=== PATIENT | male | born 1990 | race Caucasian/White ===

== ENCOUNTER 2017-07-31 02:53 | Inpatient (IN) | payer OTHER ==
[~2017-07-31] VITALS: Ht 188 cm; Wt 94.8 kg
[2017-07-31] VITALS (11 sets, daily range): BP systolic 106–160; BP diastolic 59–96; PULSE 64–127; RESP 14–23; TEMP 98.2–101.1; O2SAT 94–100
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
[2017-07-31 03:20] LABS: AUTOMATED NEUTROPHIL # 9.9 TH/MM3 (1.8-7.7); BASOPHIL # 0.1 TH/MM3 (0-0.2); BASOPHIL % 0.5 % (0.0-2.0); EOSINOPHIL # 0.6 TH/MM3 (0-0.4); EOSINOPHIL % 3.1 % (0.0-4.0); HEMATOCRIT 47.5 % (39.0-51.0); HEMOGLOBIN 15.8 GM/DL (13.0-17.0); LYMPH % 37.8 % (9.0-44.0); LYMPHOCYTE # 7.5 TH/MM3 (1.0-4.8); MEAN CELL VOLUME 94.5 FL (80.0-100.0); MEAN CORPUSCULAR HEMOGLOBIN 31.5 PG (27.0-34.0); MEAN CORPUSCULAR HGB CONC 33.3 % (32.0-36.0); MEAN PLATELET VOLUME 8.1 FL (7.0-11.0); MONO % 8.4 % (0.0-8.0); MONOCYTE # 1.7 TH/MM3 (0-0.9); NEUT % 50.2 % (16.0-70.0); PLATELET COUNT 270 TH/MM3 (150-450); RED BLOOD COUNT 5.03 MIL/MM3 (4.50-5.90); RED CELL DISTRIBUTION WIDTH 12.9 % (11.6-17.2); WHITE BLOOD COUNT 19.8 TH/MM3 (4.0-11.0)
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
[2017-07-31 03:34] LABS: INTERNATIONAL NORMALIZED RATIO 1.1 RATIO; PROTHROMBIN TIME - PATIENT 11.3 SEC (9.8-11.6)
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
[2017-07-31] MEDS ORDERED: IOHEXOL 350 MG/ML 10 ML VIAL (for RAD DIAG) IVCONTRAST ONE (03:38)
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
[2017-07-31] MEDS ORDERED: SODIUM CHLORIDE 0.9% FLUSH 10 ML FLUSH IV FLUSH PRN (03:45)
[2017-07-31] MEDS ORDERED: ONDANSETRON HCL 4 MG/2 ML VIAL IV PUSH PRN (03:45)
[2017-07-31] MEDS ORDERED: ENALAPRILAT 1.25 MG/ML VIAL IV PUSH PRN (03:45)
[2017-07-31] MEDS ORDERED: MAGNESIUM HYDROXIDE SUSP 30 ML CUP PO PRN (03:45)
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
[2017-07-31] MEDS ORDERED: LIDOCAINE HCL 1% 50 ML VIAL INFIL ONE (04:00)
[2017-07-31 04:01] LABS: LYMPHOCYTES 40 % (9-44); MONOCYTES 6 % (0-8); NEUTROPHIL # MANUAL DIFF 10.3 TH/MM3 (1.8-7.7); POLYS (SEG NEUTROPHILS) 52 % (16-70)
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
[2017-07-31] MEDS: SODIUM CHLOR 0.9% 1000 ML INJ 1,000 ML IV SCH ×2 (04:25→13:35)
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
[2017-07-31] MEDS: ceFAZolin 2 GM PREMIX 50 ML IV SCH ×4 (05:48→21:42)
[2017-07-31] MEDS: PANTOPRAZOLE SODIUM 40 MG VIAL IVP SCH (05:48)
[2017-07-31] MEDS: MORPHINE SULFATE 2 MG/ML INJ IV PUSH PRN ×3 (05:50→13:00)
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
[2017-07-31] MEDS: ACETAMINOPHEN/HYDROcodone 325 MG/5 MG TAB PO PRN ×4 (08:26→13:41)
[2017-07-31] MEDS ORDERED: DOCUSATE SODIUM 100 MG CAP PO SCH (09:00)
[2017-07-31] MEDS: MULTIVITAMIN INJ 10 ML, THIAMINE INJ 100 MG, FOLIC ACID INJ 1 MG in SODIUM CHLORID 0.9%... IV SCH (09:00)
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
[2017-07-31] MEDS: BACITRACIN TOP OINT 15 GM TUBE TOP SCH ×2 (10:00→17:30)
[2017-07-31] MEDS ORDERED: LACTULOSE SYRUP 20 GM/30 ML CUP PO PRN (10:00)
[2017-07-31] MEDS: DOCUSATE SODIUM 50 MG/SENNA 8.6 MG TAB PO SCH ×2 (11:00→21:42)
[2017-07-31] MEDS ORDERED: MIDAZOLAM HCL 2 MG/2 ML VIAL IV ONE (12:00)
[2017-07-31] MEDS ORDERED: DEXAMETHASONE SOD PHOS 4 MG/ML VIAL IV ONE (12:00)
[2017-07-31] MEDS ORDERED: PROPOFOL 200 MG/20 ML AMP IV ONE (12:00)
[2017-07-31] MEDS ORDERED: NEOSTIGMINE 5 MG/5 ML SYRINGE IV PUSH ONE (12:00)
[2017-07-31] MEDS ORDERED: LIDOCAINE HCL 1% PF 5 ML SYRINGE OTHER ONE (12:00)
[2017-07-31] MEDS ORDERED: MORPHINE SULFATE 4 MG/ML INJ IV ONE (12:00)
[2017-07-31] MEDS ORDERED: ONDANSETRON HCL 4 MG/2 ML VIAL IV PUSH ONE (12:00)
[2017-07-31] MEDS ORDERED: ROCURONIUM INJ 50 MG/5 ML SYRINGE IV PUSH ONE (12:00)
[2017-07-31] MEDS ORDERED: GLYCOPYRROLATE 1 MG/5 ML SYRINGE IV PUSH ONE (12:00)
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
[2017-07-31] MEDS ORDERED: GENTAMICIN 80 MG PREMIX 100 ML IV SCH (14:00)
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
[2017-07-31] MEDS ORDERED: TETANUS/DIPHTHERIA TOXOID ADULT 0.5 ML VIAL IM ONE (16:00)
[2017-07-31] MEDS ORDERED: GENTAMICIN SULFATE 80 MG/2 ML VIAL ONE (16:08)
[2017-07-31] MEDS ORDERED: VANCOMYCIN HCL 1000 MG VIAL ONE (16:08)
[2017-07-31] MEDS ORDERED: ARTIFICIAL TEARS OPTH OINT 3.5 APPLIC/3.5 GM TUBO ONE (16:49)
[2017-07-31] MEDS: LACTATED RINGER'S 1000 ML INJ 1,000 ML IV SCH (17:07)
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
[2017-07-31] MEDS ORDERED: diphenhydrAMINE HCL 25 MG CAP PO PRN (17:15)
[2017-07-31] MEDS ORDERED: Post-op Orders (for Pharmacy) XX ONE (17:15)
--- NOTE | 2017-07-31 17:42 | RADRPT ---
EXAM DATE/TIME: 07/31/2017 16:54 [facility] COMPARISON: No previous studies available for comparison. INDICATIONS : External fixation of left lower leg. MEDICAL HISTORY : None. SURGICAL HISTORY : None. ENCOUNTER: Initial ACUITY: 1 day PAIN SCORE: Non-responsive. LOCATION: Left ankle. FINDINGS: Three view exam was performed of the left ankle. There are mildly displaced obliquely oriented fractu re of the distal tibia. Fibular intact. No dislocation. CONCLUSION: 1. External fixation across a mildly displaced distal tibial fracture. Bhavin Rossi MD on July 31, 2017 at 17:39 Board Certified Radiologist. This report was verified electronically.
[2017-07-31] MEDS ORDERED: *MEPERIDINE 25 MG INJ VIAL PERIprocedural Use ONLY ONE (18:17)
[2017-07-31] MEDS ORDERED: DO NOT ADM ANY ANTICOAGULANT DRUGS PRN (18:45)
[2017-07-31] MEDS: ACETAMINOPHEN/HYDROcodone 325 MG/10 MG TAB PO PRN (21:41)
[2017-07-31] MEDS: KETOROLAC TROMETHAMINE 30 MG/ML (IVP) VIAL IVP SCH (21:42)
[2017-08-01] VITALS (7 sets, daily range): BP systolic 148–166; BP diastolic 78–95; PULSE 68–84; RESP 16–19; TEMP 97.5–98.1; O2SAT 96–100
[2017-08-01] MEDS: ACETAMINOPHEN/HYDROcodone 325 MG/10 MG TAB PO PRN ×5 (05:10→23:42)
[2017-08-01] MEDS: PANTOPRAZOLE SODIUM 40 MG VIAL IVP SCH (05:12)
[2017-08-01] MEDS: KETOROLAC TROMETHAMINE 30 MG/ML (IVP) VIAL IVP SCH ×3 (05:12→22:06)
[2017-08-01] MEDS: ceFAZolin 2 GM PREMIX 50 ML IV SCH ×3 (05:13→22:06)
[2017-08-01] MEDS: LACTATED RINGER'S 1000 ML INJ 1,000 ML IV SCH (05:37)
[2017-08-01] MEDS: MULTIVITAMIN INJ 10 ML, THIAMINE INJ 100 MG, FOLIC ACID INJ 1 MG in SODIUM CHLORID 0.9%... IV SCH (05:48)
[2017-08-01 07:34] LABS: AUTOMATED NEUTROPHIL # 5.3 TH/MM3 (1.8-7.7); BASOPHIL % 0.1 % (0.0-2.0); HEMATOCRIT 40.9 % (39.0-51.0); HEMOGLOBIN 14.2 GM/DL (13.0-17.0); LYMPH % 14.5 % (9.0-44.0); LYMPHOCYTE # 1.2 TH/MM3 (1.0-4.8); MEAN CELL VOLUME 95.2 FL (80.0-100.0); MEAN CORPUSCULAR HGB CONC 34.6 % (32.0-36.0); MEAN PLATELET VOLUME 8.6 FL (7.0-11.0); MONO % 20.9 % (0.0-8.0); MONOCYTE # 1.7 TH/MM3 (0-0.9); NEUT % 64.5 % (16.0-70.0); PLATELET COUNT 170 TH/MM3 (150-450); RED BLOOD COUNT 4.29 MIL/MM3 (4.50-5.90); WHITE BLOOD COUNT 8.2 TH/MM3 (4.0-11.0)
[2017-08-01 07:57] LABS: ALKALINE PHOSPHATASE 49 U/L (45-117); TOTAL BILIRUBIN ADULT 0.9 MG/DL (0.2-1.0); TOTAL PROTEIN 5.5 GM/DL (6.4-8.2)
[2017-08-01 08:01] LABS: ALBUMIN 2.3 GM/DL (3.4-5.0); ALT (GPT) 34 U/L (12-78); AST (GOT) 54 U/L (15-37); BLOOD UREA NITROGEN 12 MG/DL (7-18); CALCIUM 7.7 MG/DL (8.5-10.1); CHLORIDE 109 MEQ/L (98-107); GLOMERULAR FILTRATION RATE 73 ML/MIN (>89); GLUCOSE,RANDOM 136 MG/DL (74-106); SODIUM (NA) 138 MEQ/L (136-145)
[2017-08-01] MEDS: DOCUSATE SODIUM 50 MG/SENNA 8.6 MG TAB PO SCH ×2 (08:29→20:01)
[2017-08-01] MEDS: GABAPENTIN 300 MG CAP PO SCH ×3 (08:30→16:59)
[2017-08-01] MEDS: FAMOTIDINE 20 MG TAB PO SCH ×2 (08:32→20:02)
[2017-08-01] MEDS: GENTAMICIN 80 MG PREMIX 100 ML IV SCH ×4 (08:43→23:42)
--- NOTE | 2017-08-01 08:49 | PD.ORT.PN ---
Subjective Subjective Remarks POD 1 s/p I&D with exfix left ankle doing well. pain controlled no complaints. Objective Vitals Vital Signs Date Time Temp Pulse Resp B/P (MAP) Pulse Ox O2 Delivery O2 Flow Rate FiO2 08/01/17 08:00 98.1 70 16 148/78 (101) 100 08/01/17 06:00 98 Nasal Cannula 2.00 08/01/17 04:00 98.0 68 18 153/82 (105) 100 08/01/17 00:00 97.9 70 18 151/91 (111) 99 07/31/17 20:00 101.1 101 18 145/79 (101) 95 07/31/17 18:45 95 13 163/85 (111) 98 Nasal Cannula 3 07/31/17 18:30 81 13 163/80 (107) 100 Nasal Cannula 3 07/31/17 18:20 97.6 104 19 167/77 (107) 100 Simple Mask 10 07/31/17 14:55 121 07/31/17 14:55 99.8 121 12 150/85 (106) 94 07/31/17 14:00 125 07/31/17 12:00 98.6 125 21 134/96 (109) 98 07/31/17 12:00 127 07/31/17 10:00 112 07/31/17 10:00 24 07/31/17 09:48 98 21 I/O 07/31/17 07/31/17 07/31/17 08/01/17 08/01/17 08/01/17 07:00 15:00 23:00 07:00 15:00 23:00 Intake Total 1600 ml Output Total 625 ml 200 ml 850 ml Balance -625 ml 1400 ml -850 ml Intake IV Total 1600 ml Output Urine Total 625 ml 150 ml 850 ml Estimated Blood Loss 50 ml Result Diagram: 08/01/1751 08/01/17 06 Imaging Last 24 hours Impressions Pelvis X-Ray 07/31/17 030 Signed Impressions: Service Date/Time: Monday, July 31, 2017 02:56 - CONCLUSION: No evidence of fracture. Bud Gonzalez MD Maxillofacial CT 07/31/17 030 Signed Impressions: Service Date/Time: Monday, July 31, 2017 03:14 - CONCLUSION: 1. Right-sided facial soft tissue swelling. No evidence of fracture. 2. Mild maxillary and ethmoid sinus disease. Bud Gonzalez MD Head CT 07/31/17 030 Signed Impressions: Service Date/Time: Monday, July 31, 2017 03:14 - CONCLUSION: No acute intracranial findings. Bud Gonzalez MD Chest X-Ray 07/31/17299 Signed Impressions: Service Date/Time: Monday, July 31, 2017 02:56 - CONCLUSION: No acute cardiopulmonary disease identified. Bud Gonzalez MD Chest CT 07/31/17299 Signed Impressions: Service Date/Time: Monday, July 31, 2017 03:22 - CONCLUSION: No acute findings in the chest. Bud Gonzalez MD Cervical Spine CT 07/31/17299 Signed Impressions: Service Date/Time: Monday, July 31, 2017 03:14 - CONCLUSION: No evidence of fracture. Bud Gonzalez MD Abdomen/Pelvis CT 07/31/17 030 Signed Impressions: Service Date/Time: Monday, July 31, 2017 03:22 - CONCLUSION: No acute findings in the abdomen and pelvis. Bud Gonzalez MD Tibia/Fibula X-Ray 07/31/17 0000 Signed Impressions: Service Date/Time: Monday, July 31, 2017 02:56 - CONCLUSION: Distal tibia and fibula fractures. Bud Gonzalez MD Aorta w/Runoff CTA 07/31/17 0000 Signed Impressions: Service Date/Time: Monday, July 31, 2017 03:22 - CONCLUSION: 1. Distal left tibia and fibula fractures. There is evidence of disruption of the left anterior tibial artery at the level the tibial fracture. A patent anterior tibial artery is not seen distal to the fracture. Posterior tibial and peroneal arteries are patent on the left. 2. Aortogram and more proximal run off within normal limits. 3. Nondisplaced calcaneus fracture also noted. Bud Gonzalez MD Objective Remarks LLE: +exfix. pin sites clean. nvi. +vac. 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
[2017-08-01] MEDS: BACITRACIN TOP OINT 15 GM TUBE TOP SCH ×2 (09:00→21:35)
[2017-08-01] MEDS: MORPHINE SULFATE 2 MG/ML INJ IV PUSH PRN (10:22)
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
[2017-08-01] MEDS ORDERED: MORPHINE SULFATE 2 MG/ML INJ IV PUSH ONE (12:15)
[2017-08-01] MEDS: fentaNYL 50 MCG/HR PATCH T-DERMAL SCH (13:28)
[2017-08-01] MEDS: ENOXAPARIN SODIUM 40 MG/0.4 ML SYRINGE SQ SCH (17:00)
[2017-08-02] VITALS (7 sets, daily range): BP systolic 141–157; BP diastolic 62–88; PULSE 84–105; RESP 18–24; TEMP 96.7–98.9; O2SAT 97–100
[2017-08-02] MEDS: KETOROLAC TROMETHAMINE 30 MG/ML (IVP) VIAL IVP SCH ×2 (03:54→13:00)
[2017-08-02] MEDS: ACETAMINOPHEN/HYDROcodone 325 MG/10 MG TAB PO PRN ×3 (03:54→16:04)
[2017-08-02] MEDS: ceFAZolin 2 GM PREMIX 50 ML IV SCH ×3 (03:54→22:10)
--- NOTE | 2017-08-02 06:44 | PD.ORT.PN ---
Subjective Subjective Remarks POD 2 s/p I&D with exfix left ankle doing well. pain controlled no complaints. Objective Vitals Vital Signs Date Time Temp Pulse Resp B/P (MAP) Pulse Ox O2 Delivery O2 Flow Rate FiO2 08/02/17 04:41 97.3 84 18 146/78 (100) 97 08/02/17 00:08 97.2 105 18 151/62 (91) 97 08/01/17 17:59 18 08/01/17 16:00 97.5 72 18 166/95 (118) 96 08/01/17 14:27 18 08/01/17 14:27 18 08/01/17 12:35 18 08/01/17 12:03 98.0 84 19 160/91 (114) 97 08/01/17 08:45 99 Nasal Cannula 2.00 08/01/17 08:00 98.1 70 16 148/78 (101) 100 I/O 08/01/17 08/01/17 08/01/17 08/02/17 08/02/17 08/02/17 07:00 15:00 23:00 07:00 15:00 23:00 Intake Total 150 ml 480 ml Output Total 850 ml 600 ml 0 ml Balance -850 ml 150 ml -120 ml 0 ml Intake Oral 480 ml IV Total 150 ml Output Urine Total 850 ml 600 ml Drainage Total 0 ml 0 ml # Bowel Movements 0 Result Diagram: 08/01/17 0651 08/01/17 0651 Imaging Last 24 hours Impressions Pelvis X-Ray 07/31/17299 Signed Impressions: Service Date/Time: Monday, July 31, 2017 02:56 - CONCLUSION: No evidence of fracture. Bud Gonzalez MD Maxillofacial CT 07/31/17299 Signed Impressions: Service Date/Time: Monday, July 31, 2017 03:14 - CONCLUSION: 1. Right-sided facial soft tissue swelling. No evidence of fracture. 2. Mild maxillary and ethmoid sinus disease. Bud Gonzalez MD Head CT 07/31/17299 Signed Impressions: Service Date/Time: Monday, July 31, 2017 03:14 - CONCLUSION: No acute intracranial findings. Bud Gonzalez MD Chest X-Ray 07/31/17299 Signed Impressions: Service Date/Time: Monday, July 31, 2017 02:56 - CONCLUSION: No acute cardiopulmonary disease identified. Bud Gonzalez MD Chest CT 07/31/17 0300 Signed Impressions: Service Date/Time: Monday, July 31, 2017 03:22 - CONCLUSION: No acute findings in the chest. Bud Gonzalez MD Cervical Spine CT 07/31/17 0300 Signed Impressions: Service Date/Time: Monday, July 31, 2017 03:14 - CONCLUSION: No evidence of fracture. Bud Gonzalez MD Abdomen/Pelvis CT 07/31/17 0300 Signed Impressions: Service Date/Time: Monday, July 31, 2017 03:22 - CONCLUSION: No acute findings in the abdomen and pelvis. Bud Gonzalez MD Tibia/Fibula X-Ray 07/31/17 0000 Signed Impressions: Service Date/Time: Monday, July 31, 2017 02:56 - CONCLUSION: Distal tibia and fibula fractures. Bud Gonzalez MD Aorta w/Runoff CTA 07/31/17 0000 Signed Impressions: Service Date/Time: Monday, July 31, 2017 03:22 - CONCLUSION: 1. Distal left tibia and fibula fractures. There is evidence of disruption of the left anterior tibial artery at the level the tibial fracture. A patent anterior tibial artery is not seen distal to the fracture. Posterior tibial and peroneal arteries are patent on the left. 2. Aortogram and more proximal run off within normal limits. 3. Nondisplaced calcaneus fracture also noted. Bud Gonzalez MD Objective Remarks LLE: +exfix. pin sites clean. nvi. +vac. good seal Assessment & Plan Assessment and Plan 1) Open left distal tibia and fibula fractures s/p I&D with application of exfix and incisional wound vac - POD 2 -NWB -pin care BID -maintain vac at all times -will remove vac tomorrow to eval skin for possible surgery -npo after MN -surgery will likely be later in week if skin ready but will prep patient incase ready tomorrow Otto Bishop/[employer] SEAMAN Aug 02, 2017 06:44
[2017-08-02] MEDS: BACITRACIN TOP OINT 15 GM TUBE TOP SCH ×2 (09:00→21:00)
[2017-08-02] MEDS: DOCUSATE SODIUM 50 MG/SENNA 8.6 MG TAB PO SCH ×2 (09:00→22:10)
[2017-08-02] MEDS: GABAPENTIN 300 MG CAP PO SCH ×3 (10:12→19:13)
[2017-08-02] MEDS: FAMOTIDINE 20 MG TAB PO SCH ×2 (10:12→22:10)
[2017-08-02] MEDS: GENTAMICIN 80 MG PREMIX 100 ML IV SCH ×2 (10:12→16:00)
[2017-08-02] MEDS ORDERED: MULTIVITAMIN INJ 10 ML, THIAMINE INJ 100 MG, FOLIC ACID INJ 1 MG in SODIUM CHLORID 0.9%... IV SCH (12:00)
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
[2017-08-02] MEDS: MORPHINE SULFATE 2 MG/ML INJ IV PUSH PRN (12:52)
[2017-08-02] MEDS: ENOXAPARIN SODIUM 40 MG/0.4 ML SYRINGE SQ SCH (16:04)
[2017-08-03] VITALS: BP 149/80; PULSE 85; RESP 22; TEMP 97.6; O2SAT 100
[2017-08-03] MEDS ORDERED: CHLORHEXIDINE GLUCONATE 2 % 1 PACK (2 CLOTHS) TOPICAL PRN (00:15)
[2017-08-03] MEDS ORDERED: LACTATED RINGER'S 1000 ML IV PRN (00:15)
[2017-08-03] MEDS ORDERED: POVIDONE IODINE 5% (ANTISEPSIS KIT) 4 APPLICATIONS EACH NARE PRN (00:15)
[2017-08-03] MEDS: MORPHINE SULFATE 2 MG/ML INJ IV PUSH PRN ×3 (02:12→14:05)
[2017-08-03 04:00] VITALS: BP 150/71; PULSE 91; RESP 22; TEMP 97.3; O2SAT 100
[2017-08-03 04:44] LABS: BASOPHIL % 0.5 % (0.0-2.0); EOSINOPHIL # 0.3 TH/MM3 (0-0.4); HEMATOCRIT 31.2 % (39.0-51.0); HEMOGLOBIN 10.6 GM/DL (13.0-17.0); LYMPH % 30.2 % (9.0-44.0); LYMPHOCYTE # 1.7 TH/MM3 (1.0-4.8); MEAN CELL VOLUME 94.2 FL (80.0-100.0); MEAN CORPUSCULAR HEMOGLOBIN 31.9 PG (27.0-34.0); MEAN CORPUSCULAR HGB CONC 33.9 % (32.0-36.0); MEAN PLATELET VOLUME 8.3 FL (7.0-11.0); MONOCYTE # 0.5 TH/MM3 (0-0.9); NEUT % 54.3 % (16.0-70.0); PLATELET COUNT 165 TH/MM3 (150-450); RED BLOOD COUNT 3.31 MIL/MM3 (4.50-5.90); RED CELL DISTRIBUTION WIDTH 12.9 % (11.6-17.2); WHITE BLOOD COUNT 5.6 TH/MM3 (4.0-11.0)
[2017-08-03 05:16] LABS: BICARBONATE 29.4 MEQ/L (21.0-32.0); CALCIUM 7.8 MG/DL (8.5-10.1); CREATININE 0.73 MG/DL (0.60-1.30)
[2017-08-03] MEDS: ceFAZolin 2 GM PREMIX 50 ML IV SCH ×2 (06:03→14:05)
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
[2017-08-03 08:00] VITALS: BP 151/76; PULSE 89; RESP 18; TEMP 98.2; O2SAT 97
[2017-08-03] MEDS: ACETAMINOPHEN/HYDROcodone 325 MG/10 MG TAB PO PRN ×2 (08:53→16:57)
[2017-08-03] MEDS: GABAPENTIN 300 MG CAP PO SCH ×3 (08:53→16:56)
[2017-08-03] MEDS: DOCUSATE SODIUM 50 MG/SENNA 8.6 MG TAB PO SCH ×2 (08:54→21:46)
[2017-08-03] MEDS: FAMOTIDINE 20 MG TAB PO SCH ×2 (08:54→21:46)
[2017-08-03] MEDS: GENTAMICIN 80 MG PREMIX 100 ML IV SCH ×3 (08:59→17:17)
[2017-08-03] MEDS: LISINOPRIL 10 MG TAB PO SCH (08:59)
[2017-08-03] MEDS: BACITRACIN TOP OINT 15 GM TUBE TOP SCH ×2 (09:00→21:47)
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
[2017-08-03] MEDS ORDERED: LISI10TA3 PO (11:29)
[2017-08-03] MEDS ORDERED: CRUTMIS25 (11:33)
--- NOTE | 2017-08-03 11:34 | HHI.FF ---
Face to Face Verification Diagnosis: (1) Open fracture of left tibia and fibula (2) Left calcaneal fracture (3) Avulsion of skin of face Physical Therapy Order: Evaluate and Treat, Improve ambulation, Strength and gait training Home Health Nursing Order: Wound care and dressing changes Nursing assessment with vital signs I have seen patient Bull Chopra on 08/03/17. My clinical findings support the need for the requested home health care services because: Limited ability to care for self High risk of falls I certify that my clinical findings support that this patient is homebound because: Post-op weakness Unsteady gait/balance Anila Feliciano Aug 03, 2017 11:34
[2017-08-03 12:00] VITALS: BP 128/80; PULSE 113; RESP 18; TEMP 99.2; O2SAT 97
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
[2017-08-03 16:00] VITALS: BP 149/76; PULSE 100; RESP 16; TEMP 98; O2SAT 98
[2017-08-03] MEDS: ENOXAPARIN SODIUM 40 MG/0.4 ML SYRINGE SQ SCH (16:56)
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
[2017-08-03 20:05] VITALS: BP 130/67; PULSE 92; RESP 18; TEMP 99.9; O2SAT 99
[2017-08-03] MEDS ORDERED: MAGN30S PO (20:35)
[2017-08-03] MEDS ORDERED: PERI PO (20:35)
[2017-08-03] MEDS: LACTULOSE SYRUP 20 GM/30 ML CUP PO SCH (20:45)
[2017-08-03] MEDS: MAGNESIUM HYDROXIDE SUSP 30 ML CUP PO SCH (21:45)
[2017-08-04 00:03] VITALS: BP 138/73; PULSE 93; RESP 18; TEMP 99.6; O2SAT 99
[2017-08-04 04:03] VITALS: BP 142/78; PULSE 92; RESP 18; TEMP 99.4; O2SAT 99
[2017-08-04] MEDS: MORPHINE SULFATE 2 MG/ML INJ IV PUSH PRN ×3 (04:09→17:25)
--- NOTE | 2017-08-04 07:01 | PD.ORT.PN ---
Subjective Subjective Remarks Resting comfortably with no new complaints Objective Vitals Vital Signs Date Time Temp Pulse Resp B/P (MAP) Pulse Ox O2 Delivery O2 Flow Rate FiO2 08/04/17 04:03 99.4 92 18 142/78 (99) 99 08/04/17 00:03 99.6 93 18 138/73 (94) 99 08/03/17 20:05 99.9 92 18 130/67 (88) 99 08/03/17 16:00 98.0 100 16 149/76 (100) 98 08/03/17 12:00 99.2 113 18 128/80 (96) 97 08/03/17 08:00 98.2 89 18 151/76 (101) 97 I/O 08/03/17 08/03/17 08/03/17 08/04/17 08/04/17 08/04/17 07:00 15:00 23:00 07:00 15:00 23:00 Intake Total 960 ml 360 ml 240 ml Output Total 800 ml Balance -800 ml 960 ml 360 ml 240 ml Intake Oral 960 ml 360 ml 240 ml Output Urine Total 800 ml # Voids 3 1 2 # Bowel Movements 0 0 0 Result Diagram: 08/03/173 08/03/17 0403 Imaging Last 24 hours Impressions Pelvis X-Ray 07/31/17299 Signed Impressions: Service Date/Time: Monday, July 31, 2017 02:56 - CONCLUSION: No evidence of fracture. Bud Gonzalez MD Maxillofacial CT 07/31/17299 Signed Impressions: Service Date/Time: Monday, July 31, 2017 03:14 - CONCLUSION: 1. Right-sided facial soft tissue swelling. No evidence of fracture. 2. Mild maxillary and ethmoid sinus disease. Bud Gonzalez MD Head CT 07/31/17299 Signed Impressions: Service Date/Time: Monday, July 31, 2017 03:14 - CONCLUSION: No acute intracranial findings. Bud Gonzalez MD Chest X-Ray 07/31/17299 Signed Impressions: Service Date/Time: Monday, July 31, 2017 02:56 - CONCLUSION: No acute cardiopulmonary disease identified. Bud Gonzalez MD Chest CT 07/31/17299 Signed Impressions: Service Date/Time: Monday, July 31, 2017 03:22 - CONCLUSION: No acute findings in the chest. Bud Gonzalez MD Cervical Spine CT 07/31/17 0300 Signed Impressions: Service Date/Time: Monday, July 31, 2017 03:14 - CONCLUSION: No evidence of fracture. Bud Gonzalez MD Abdomen/Pelvis CT 07/31/17 0300 Signed Impressions: Service Date/Time: Monday, July 31, 2017 03:22 - CONCLUSION: No acute findings in the abdomen and pelvis. Bud Gonzalez MD Tibia/Fibula X-Ray 07/31/17 0000 Signed Impressions: Service Date/Time: Monday, July 31, 2017 02:56 - CONCLUSION: Distal tibia and fibula fractures. Bud Gonzalez MD Aorta w/Runoff CTA 07/31/17 0000 Signed Impressions: Service Date/Time: Monday, July 31, 2017 03:22 - CONCLUSION: 1. Distal left tibia and fibula fractures. There is evidence of disruption of the left anterior tibial artery at the level the tibial fracture. A patent anterior tibial artery is not seen distal to the fracture. Posterior tibial and peroneal arteries are patent on the left. 2. Aortogram and more proximal run off within normal limits. 3. Nondisplaced calcaneus fracture also noted. Bud Gonzalez MD Objective Remarks Left lower extremity: External fixation in place. Dressings taken down showing traumatic laceration over medial malleolus continuing to improve. Swelling improving. Intact sensation in all toes Assessment & Plan Assessment and Plan 1) Open left distal tibia and fibula fractures s/p I&D with application of exfix and incisional wound vac - POD 4 -NWB -pin care BID -Daily dressing changes with bacitracin and Xeroform over traumatic laceration Traumatic laceration is continuing to remain viable. We will examine the ankle tomorrow and continued to make plans for further intervention. We will proceed later this week or may be discharged to home and follow-up in one week. We will know better tomorrow morning when we see the traumatic wound Robert Gardner Jr. Aug 04, 2017 07:00
[2017-08-04 07:35] VITALS: BP 149/77; PULSE 82; RESP 19; TEMP 97.9; O2SAT 97
[2017-08-04] MEDS: FAMOTIDINE 20 MG TAB PO SCH ×2 (09:00→20:14)
[2017-08-04] MEDS: LACTULOSE SYRUP 20 GM/30 ML CUP PO SCH (09:00)
[2017-08-04] MEDS: LISINOPRIL 10 MG TAB PO SCH (09:16)
[2017-08-04] MEDS: MAGNESIUM HYDROXIDE SUSP 30 ML CUP PO SCH ×2 (09:17→20:15)
[2017-08-04] MEDS: DOCUSATE SODIUM 50 MG/SENNA 8.6 MG TAB PO SCH ×2 (09:17→20:16)
[2017-08-04] MEDS: GABAPENTIN 300 MG CAP PO SCH ×3 (09:17→17:24)
[2017-08-04] MEDS: ACETAMINOPHEN/HYDROcodone 325 MG/10 MG TAB PO PRN ×3 (09:18→20:15)
[2017-08-04] MEDS: BACITRACIN TOP OINT 15 GM TUBE TOP SCH ×2 (09:19→20:17)
[2017-08-04] MEDS ORDERED: REMOVE OLD PATCH T-DERMAL SCH (11:00)
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
[2017-08-04 11:44] VITALS: BP 155/88; PULSE 85; RESP 19; TEMP 97.8; O2SAT 96
[2017-08-04] MEDS: fentaNYL 50 MCG/HR PATCH T-DERMAL SCH (11:51)
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
[2017-08-04 16:00] VITALS: BP 146/82; PULSE 95; RESP 19; TEMP 99.1; O2SAT 97
[2017-08-04] MEDS: ENOXAPARIN SODIUM 40 MG/0.4 ML SYRINGE SQ SCH (17:24)
[2017-08-04 20:00] VITALS: BP 148/80; PULSE 101; RESP 20; TEMP 99.2; O2SAT 96
[2017-08-05] VITALS: BP 121/65; PULSE 88; RESP 20; TEMP 98.2; O2SAT 96
[2017-08-05] MEDS: ACETAMINOPHEN/HYDROcodone 325 MG/10 MG TAB PO PRN ×4 (03:10→17:00)
[2017-08-05 05:00] LABS: AUTOMATED NEUTROPHIL # 6.5 TH/MM3 (1.8-7.7); BASOPHIL % 0.4 % (0.0-2.0); EOSINOPHIL # 0.6 TH/MM3 (0-0.4); EOSINOPHIL % 5.2 % (0.0-4.0); HEMATOCRIT 32.3 % (39.0-51.0); HEMOGLOBIN 11.2 GM/DL (13.0-17.0); LYMPH % 22.4 % (9.0-44.0); LYMPHOCYTE # 2.4 TH/MM3 (1.0-4.8); MEAN CELL VOLUME 94.1 FL (80.0-100.0); MEAN CORPUSCULAR HEMOGLOBIN 32.6 PG (27.0-34.0); MEAN CORPUSCULAR HGB CONC 34.6 % (32.0-36.0); MEAN PLATELET VOLUME 7.8 FL (7.0-11.0); MONO % 11.3 % (0.0-8.0); MONOCYTE # 1.2 TH/MM3 (0-0.9); NEUT % 60.7 % (16.0-70.0); PLATELET COUNT 267 TH/MM3 (150-450); RED BLOOD COUNT 3.43 MIL/MM3 (4.50-5.90); RED CELL DISTRIBUTION WIDTH 12.7 % (11.6-17.2); WHITE BLOOD COUNT 10.7 TH/MM3 (4.0-11.0)
[2017-08-05 05:22] LABS: BICARBONATE 25.6 MEQ/L (21.0-32.0); CALCIUM 8.5 MG/DL (8.5-10.1); CREATININE 0.91 MG/DL (0.60-1.30)
[2017-08-05] MEDS ORDERED: HYDR-3366 PO (06:51)
[2017-08-05] MEDS ORDERED: XARE10TA PO (06:52)
--- NOTE | 2017-08-05 06:52 | HHI.FF ---
Face to Face Verification Diagnosis: (1) Open fracture of left tibia and fibula Physical Therapy Gait training Right LE Weight Bearing: WB as tolerated Left LE Weight Bearing: Non WB Nursing Nursing: Teach and assist BID pin care Dressing Changes: Daily dressing change, Aristeo wrap, 4x4s, Xeroform I have seen patient Bull Chopra on 08/05/17. My clinical findings support the need for the requested home health care services because: Ltd mobility - disease progression I certify that my clinical findings support that this patient is homebound because: Post-op weakness Otto Bishop/Interactive Marketing Strategist PA Aug 05, 2017 06:52
--- NOTE | 2017-08-05 07:01 | PD.ORT.PN ---
Subjective Subjective Remarks s/p I&D with exfix left ankle doing well. pain controlled no complaints. out of bed on own and using walker Objective Vitals Vital Signs Date Time Temp Pulse Resp B/P (MAP) Pulse Ox O2 Delivery O2 Flow Rate FiO2 08/05/17 00:00 98.2 88 20 121/65 (83) 96 08/04/17 20:00 99.2 101 20 148/80 (102) 96 08/04/17 16:00 99.1 95 19 146/82 (103) 97 08/04/17 11:44 97.8 85 19 155/88 (110) 96 08/04/17 07:35 97.9 82 19 149/77 (101) 97 I/O 08/04/17 08/04/17 08/04/17 08/05/17 08/05/17 08/05/17 07:00 15:00 23:00 07:00 15:00 23:00 Intake Total 240 ml 950 ml 320 ml Output Total 500 ml Balance 240 ml 950 ml -180 ml Intake Oral 240 ml 950 ml 320 ml Output Urine Total 500 ml # Voids 2 5 # Bowel Movements 0 1 0 Result Diagram: 08/05/170 08/05/17 0440 Imaging Last 24 hours Impressions Pelvis X-Ray 07/31/17299 Signed Impressions: Service Date/Time: Monday, July 31, 2017 02:56 - CONCLUSION: No evidence of fracture. Bud Gonzalez MD Maxillofacial CT 07/31/17299 Signed Impressions: Service Date/Time: Monday, July 31, 2017 03:14 - CONCLUSION: 1. Right-sided facial soft tissue swelling. No evidence of fracture. 2. Mild maxillary and ethmoid sinus disease. Bud Gonzalez MD Head CT 07/31/17299 Signed Impressions: Service Date/Time: Monday, July 31, 2017 03:14 - CONCLUSION: No acute intracranial findings. Bud Gonzalez MD Chest X-Ray 07/31/17299 Signed Impressions: Service Date/Time: Monday, July 31, 2017 02:56 - CONCLUSION: No acute cardiopulmonary disease identified. Bud Gonzalez MD Chest CT 07/31/17299 Signed Impressions: Service Date/Time: Monday, July 31, 2017 03:22 - CONCLUSION: No acute findings in the chest. Bud Gonzalez MD Cervical Spine CT 07/31/17 0300 Signed Impressions: Service Date/Time: Monday, July 31, 2017 03:14 - CONCLUSION: No evidence of fracture. Bud Gonzalez MD Abdomen/Pelvis CT 07/31/17 0300 Signed Impressions: Service Date/Time: Monday, July 31, 2017 03:22 - CONCLUSION: No acute findings in the abdomen and pelvis. Bud Gonzalez MD Tibia/Fibula X-Ray 07/31/17 0000 Signed Impressions: Service Date/Time: Monday, July 31, 2017 02:56 - CONCLUSION: Distal tibia and fibula fractures. Bud Gonzalez MD Aorta w/Runoff CTA 07/31/17 0000 Signed Impressions: Service Date/Time: Monday, July 31, 2017 03:22 - CONCLUSION: 1. Distal left tibia and fibula fractures. There is evidence of disruption of the left anterior tibial artery at the level the tibial fracture. A patent anterior tibial artery is not seen distal to the fracture. Posterior tibial and peroneal arteries are patent on the left. 2. Aortogram and more proximal run off within normal limits. 3. Nondisplaced calcaneus fracture also noted. Bud Gonzalez MD Objective Remarks Left lower extremity: External fixation in place. Dressings taken down showing traumatic laceration over medial malleolus continuing to improve. Swelling improving. Intact sensation in all toes Assessment & Plan Assessment and Plan 1) Open left distal tibia and fibula fractures s/p I&D with application of exfix and incisional wound vac -NWB -pin care BID -Daily dressing changes with bacitracin and Xeroform over traumatic laceration -traumatic laceration healing. area of necrosis proximal to incison maintaining size and not gettign bigger. hopeful that skin will make it. swelling too great for surgery at this time. -patient lives alone but states he has enough support that he could get help at home. - plan for discharge home with [facility] and follow up with [facility] or [facility] in 2 weeks to re-eval swelling for surgery. Otto Bishop/Driver License Agent PA Aug 05, 2017 07:01
[2017-08-05 07:39] VITALS: BP 131/70; PULSE 75; RESP 19; TEMP 98.7; O2SAT 96
[2017-08-05] MEDS: FAMOTIDINE 20 MG TAB PO SCH (08:43)
[2017-08-05] MEDS: LISINOPRIL 10 MG TAB PO SCH (08:43)
[2017-08-05] MEDS: GABAPENTIN 300 MG CAP PO SCH ×3 (08:44→17:00)
[2017-08-05] MEDS: LACTULOSE SYRUP 20 GM/30 ML CUP PO SCH (08:44)
[2017-08-05] MEDS: MAGNESIUM HYDROXIDE SUSP 30 ML CUP PO SCH (08:44)
[2017-08-05] MEDS: DOCUSATE SODIUM 50 MG/SENNA 8.6 MG TAB PO SCH (08:44)
[2017-08-05] MEDS: BACITRACIN TOP OINT 15 GM TUBE TOP SCH (08:45)
[2017-08-05 11:45] VITALS: BP 140/81; PULSE 93; RESP 19; TEMP 97.2; O2SAT 99
[2017-08-05] MEDS ORDERED: QC B500O TOP (14:03)
[2017-08-05] MEDS ORDERED: WALKER WHEELS/F1 MIS (14:04)
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
[2017-08-05 15:38] VITALS: BP 142/76; PULSE 90; RESP 19; TEMP 97.8; O2SAT 98
[2017-08-05] MEDS: ENOXAPARIN SODIUM 40 MG/0.4 ML SYRINGE SQ SCH (17:00)
== END 2017-08-05 17:31 | disposition home health service (06) | DRG 492 ==
LOC: NEPI 02:53 → EDBD 03:19 → NEDA 03:19 → N03B 05:13 → N05B 15:28 → N06B 08-01 11:39
PROVIDERS: ADMIT Surgery; ATTEND Surgery
PROC: 0HQ1XZZ Repair Face Skin, External Approach (ICD-10-PCS; 2017-07-31)
PROC: 0HQ1XZZ Repair Face Skin, External Approach (ICD-10-PCS; 2017-07-31)
PROC: 0QSH35Z Reposition Left Tibia with External Fixation Device, Percutaneous Approach (ICD-10-PCS; principal; 2017-07-31 16:03)
PROC: 0HD1XZZ Extraction of Face Skin, External Approach (ICD-10-PCS; 2017-07-31 16:03)
DX: S82.302B Unspecified fracture of lower end of left tibia, initial encounter for open fracture type I or II (principal); S82.832B Other fracture of upper and lower end of left fibula, initial encounter for open fracture type I or II; S06.0X9A Concussion with loss of consciousness of unspecified duration, initial encounter; I10 Essential (primary) hypertension; S01.111A Laceration without foreign body of right eyelid and periocular area, initial encounter; S01.81XA Laceration without foreign body of other part of head, initial encounter; S92.002A Unspecified fracture of left calcaneus, initial encounter for closed fracture; H53.8 Other visual disturbances; Y90.7 Blood alcohol level of 200-239 mg/100 ml; S20.311A Abrasion of right front wall of thorax, initial encounter; S40.211A Abrasion of right shoulder, initial encounter; S40.811A Abrasion of right upper arm, initial encounter; F43.22 Adjustment disorder with anxiety; V29.9XXA Motorcycle rider (driver) (passenger) injured in unspecified traffic accident, initial encounter; Y92.488 Other paved roadways as the place of occurrence of the external cause; Y93.89 Activity, other specified
CPT/HCPCS: 12013; 70450; 70486; 71010; 71260; 72125; 72170; 73564; 73590; 73610; 74177; 75635; 76000; 76937; 80048; 80053; 80307; 82435; 82565; 82947; 84132; 84295; 84520; 85007; 85025; 85027; 85610; 85730; 86850; 86900; 86901; 90471; 90714; 94002; 94150; 96361; 96374; 96375; 99291; C1713; C9113; G0390; J0690; J1100; J1580; J1650; J1885; J2175; J2250; J2270; J2405; J2710; J3010; J3370; J3411; J7030; J7040; J7120; Q9967

== ENCOUNTER 2017-08-05 20:32 | Emergency (ER) | payer OTHER ==
[~2017-08-05] VITALS: Ht 188 cm; Wt 84.1 kg
[~2017-08-05 20:32] MED LIST: CRUTMIS25; HYDR-3366 PO; LISI10TA3 PO; MAGN30S PO; PERI PO; QC B500O TOP; WALKER WHEELS/F1 MIS; XARE10TA PO
[2017-08-05 20:33] VITALS: BP 173/85; PULSE 123; RESP 20; TEMP 98.7; O2SAT 98
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
[2017-08-05] MEDS ORDERED: oxyCODONE/ACETAMINOPHEN 10 MG/325 MG TAB PO ONE (21:15)
[2017-08-05] MEDS ORDERED: LISINOPRIL 10 MG TAB PO ONE (21:30)
[2017-08-05] MEDS ORDERED: RIVAROXABAN 10 MG TAB PO ONE (21:30)
[2017-08-05 22:31] VITALS: RESP 20
== END 2017-08-05 22:32 | disposition home or self-care (01) ==
LOC: NEPD 20:32
DX: Z47.89 Encounter for other orthopedic aftercare (principal); S92.002D Unspecified fracture of left calcaneus, subsequent encounter for fracture with routine healing; S82.202D Unspecified fracture of shaft of left tibia, subsequent encounter for closed fracture with routine healing; S82.402D Unspecified fracture of shaft of left fibula, subsequent encounter for closed fracture with routine healing; V89.2XXD Person injured in unspecified motor-vehicle accident, traffic, subsequent encounter
CPT/HCPCS: 99283

== ENCOUNTER 2017-08-07 12:57 | Emergency (ER) | payer OTHER ==
[2017-08-07 13:02] VITALS: BP 153/70; PULSE 104; RESP 22; TEMP 97.7; O2SAT 97
--- NOTE | 2017-08-07 13:51 | PD ---
HPI Chief Complaint: Medical Clearance Time Seen by Provider: 13:48 Travel History International Travel<30 days: No Contact w/Intl Traveler<30days: No Traveled to known affect area: No History of Present Illness HPI 27-year-old male presents to the emergency department with concerns of wound care that he has not been able to obtain since his recent discharge. States that he was discharged here with wound care orders however, when wound care went to his house today and could not perform the care. Patient states that wound care does not "bring their supplies" and that patient was supposed to supply these. Patient states that this is not on his discharge orders and does not know what he needs to buy. At this point patient is frustrated and would like assistance. Patient denies fever or chills. Denies significant changes in pain. Patient mentioned she also had trouble getting his pain medications but this has since resolved. Note that the [place] clinic is also off this patient's care and he has been able to receive assistance from them either. PFSH Past Medical History Cancer: No Cardiovascular Problems: No Diminished Hearing: No Endocrine: No Genitourinary: No Immune Disorder: No Implanted Vascular Access Dvce: No Musculoskeletal: No Neurologic: No Psychiatric: No Reproductive: No Respiratory: No Tetanus Vaccination: < 5 Years Influenza Vaccination: No Past Surgical History AICD: No Arteriovenous Shunt: No Insulin Pump: No Joint Replacement: No Pacemaker: No Other Surgery: No Social History Alcohol Use: Yes (occ beer) Tobacco Use: No (unable to evaluate pt in extremis condition smoking hx unknown) Substance Use: No Allergies-Medications (Allergen,Severity, Reaction): Coded Allergies: No Known Allergies (Unverified , 08/07/17) Reported Meds & Prescriptions Reported Meds & Active Scripts Active Walker with Front Wheels (Device) 1 Mis Mis Ea .ROUTE DIRECTED Qc Bacitracin (Bacitracin (Topical)) 500 Unit/Gram Oin 1 Applic TOP Q12HR 5 Days Xarelto (Rivaroxaban) 10 Mg Tab 10 Mg PO DAILY 14 Days [place] (Hydrocodone-Acetaminophen) 10-325 Mg Tab 1 Tab PO Q4H PRN Gnp Senna Plus 8.6-50 mg (Sennosides-Docusate Sodium) 8.6 Mg-50 Mg Tab 2 Tab PO BID 5 Days Qc Milk of Magnesia (Magnesium Hydroxide) 400 Mg/5 Ml Kailey 30 Ml PO BID 5 Days Crutch/Aluminum/Adult (Device) 1 Mis Mis Ea .ROUTE DIRECTED Lisinopril 10 Mg Tab 10 Mg PO DAILY Review of Systems Except as stated in HPI: all other systems reviewed are Neg Physical Exam Narrative GENERAL: Well-nourished, well-developed patient. Anxious and frustrated- appearing SKIN: Focused skin assessment warm/dry. HEAD: Normocephalic. EYES: No scleral icterus. No injection or drainage. NECK: Supple, trachea midline. No JVD or lymphadenopathy. CARDIOVASCULAR: Regular rate and rhythm without murmurs, gallops, or rubs. RESPIRATORY: Breath sounds equal bilaterally. No accessory muscle use. Left leg- ORIF in place, dressing seeped, Left heel- mild erythema with superficial skin sloughing without evidence of infection. MUSCULOSKELETAL: No cyanosis, or edema. BACK: Nontender without obvious deformity. No CVA tenderness. Data Data Last Documented VS Vital Signs Date Time Temp Pulse Resp B/P (MAP) Pulse Ox O2 Delivery O2 Flow Rate FiO2 08/07/17 18:40 08/07/17 18:00 82 18 97 Room Air 08/07/17 13:02 97.7 Orders Orders Wound Care (08/07/17 14:02) Morphine Inj (Morphine Inj) (08/07/17 16:00) Morphine Inj (Morphine Inj) (08/07/17 16:30) Ed Discharge Order (08/07/17 17:09) MDM Medical Decision Making Medical Screen Exam Complete: Yes Emergency Medical Condition: Yes Differential Diagnosis Wound care, noncompliance, cellulitis Narrative Course 27-year-old male presents to the emergency department with concerns of wound care that he has not been able to obtain since his recent discharge. States that he was discharged here with wound care orders however, when wound care went to his house today and could not perform the care. Patient states that wound care does not "bring their supplies" and that patient was supposed to supply these. Patient states that this is not on his discharge orders and does not know what he needs to buy. At this point patient is frustrated and would like assistance. Patient denies fever or chills. Denies significant changes in pain. Patient mentioned she also had trouble getting his pain medications but this has since resolved. Note that the [place] [facility] is also off this patient's care and he has been able to receive assistance from them either. Vital signs stable Physical exam findings demonstrated anxious, well-appearing 27y male with ORIF of the right lower extremity. Dressings appear dry for the most part, mild drainage near left heel. Concern for left heel risk of decubitus ulcer formation. right dorsal wrist wound appear macerated with film of white exudate. Consulted case management regarding this patient. We will perform wound care and dressing change today. Case management suggests we give him supplies for now. Johana chong CM reassured me that [facility] home health care will be at his home on Wednesday. She was insistent on proper wound care. Patient was given [facility], [place], and case management phone numbers for issues or problems that may come up. Wound care performed for 3 HOURS TODAY- right arm, left leg, right leg and back. Patient advised to return home taking medications as prescribed. Return to the ED for any further issues. Diagnosis Primary Impression: Encounter for wound care Referrals: Primary Care Physician Disposition: DISCHARGE HOME Condition: Stable Elinor Fowler Aug 07, 2017 13:51
[2017-08-07 14:00] VITALS: BP 142/62; PULSE 78; RESP 19; O2SAT 98
[2017-08-07] MEDS ORDERED: MORPHINE SULFATE 4 MG/ML INJ IM ONE (16:00)
[2017-08-07] MEDS ORDERED: MORPHINE SULFATE 2 MG/ML INJ IM ONE (16:30)
[2017-08-07 18:00] VITALS: BP 140/66; PULSE 82; RESP 18; O2SAT 97
== END 2017-08-07 18:40 | disposition home or self-care (01) ==
LOC: NEPD 12:57
DX: Z47.89 Encounter for other orthopedic aftercare (principal); Z98.890 Other specified postprocedural states
CPT/HCPCS: 96372; 99284; J2270

== ENCOUNTER 2017-08-20 13:58 | Inpatient (IN) | payer OTHER ==
[~2017-08-20] VITALS: Ht 188 cm; Wt 89.8 kg
[2017-08-20 13:59] VITALS: BP 153/79; PULSE 106; RESP 20; TEMP 98; O2SAT 95
[2017-08-20] MEDS ORDERED: PIPERACIL-TAZO 3.375 GM PREMIX 50 ML IV ONE (14:30)
[2017-08-20] MEDS ORDERED: MORPHINE SULFATE 2 MG/ML INJ IV PUSH ONE (14:30)
[2017-08-20] MEDS ORDERED: VANCOMYCIN INJ 1,300 MG in SODIUM CHLORID 0.9% 500 ML INJ 500 ML IV ONE (14:30)
[2017-08-20 15:31] LABS: BASOPHIL % 0.4 % (0.0-2.0); EOSINOPHIL # 0.2 TH/MM3 (0-0.4); EOSINOPHIL % 1.6 % (0.0-4.0); HEMATOCRIT 37.5 % (39.0-51.0); HEMOGLOBIN 12.7 GM/DL (13.0-17.0); LYMPH % 18.1 % (9.0-44.0); LYMPHOCYTE # 2.1 TH/MM3 (1.0-4.8); MEAN CELL VOLUME 91.2 FL (80.0-100.0); MEAN CORPUSCULAR HEMOGLOBIN 30.9 PG (27.0-34.0); MEAN CORPUSCULAR HGB CONC 33.9 % (32.0-36.0); MEAN PLATELET VOLUME 7.2 FL (7.0-11.0); MONO % 10.2 % (0.0-8.0); MONOCYTE # 1.2 TH/MM3 (0-0.9); NEUT % 69.7 % (16.0-70.0); PLATELET COUNT 492 TH/MM3 (150-450); RED BLOOD COUNT 4.11 MIL/MM3 (4.50-5.90); RED CELL DISTRIBUTION WIDTH 13.4 % (11.6-17.2); WHITE BLOOD COUNT 11.4 TH/MM3 (4.0-11.0)
[2017-08-20 15:40] LABS: BICARBONATE 28.1 MEQ/L (21.0-32.0); C-REACTIVE PROTEIN 1.62 MG/DL (0.00-0.30); CALCIUM 8.8 MG/DL (8.5-10.1); CREATININE 0.88 MG/DL (0.60-1.30); INTERNATIONAL NORMALIZED RATIO 1.1 RATIO; PROTHROMBIN TIME - PATIENT 10.9 SEC (9.8-11.6)
--- NOTE | 2017-08-20 15:41 | RADRPT ---
EXAM DATE/TIME: 08/20/2017 14:36 [facility] COMPARISON: ANKLE LEFT COMPLETE ([id number]), July 31, 2017, 16:54. INDICATIONS : Increased swelling and oozing from pin site ,post external fixator left lower leg. MEDICAL HISTORY : None. SURGICAL HISTORY : Ex fix left lower leg ENCOUNTER: Initial ACUITY: 1 month PAIN SCORE: 7/10 LOCATION: Left lower leg FINDINGS: 2 views of the distal left leg demonstrate mildly angulated fractures involving the mid fibula and th e distal tibia. The overall alignment appears similar to the intraoperative examination of 07/31/70. CONCLUSION: 1. Satisfactory alignment of the patient's tibial and fibular fractures. There is an external fixator in place. Maurice Rascon MD on August 20, 2017 at 15:37 Board Certified Radiologist. This report was verified electronically.
--- NOTE | 2017-08-20 15:42 | RADRPT ---
EXAM DATE/TIME: 08/20/2017 14:45 [facility] COMPARISON: TIBIA/FIBULA LEFT (AP/LAT), August 20, 2017, 14:36. INDICATIONS : Increased swelling and oozing from pin site of external fixator and lower left extremity. MEDICAL HISTORY : None. SURGICAL HISTORY : ext fixator left lower leg ENCOUNTER: Initial ACUITY: 1 month PAIN SCORE: 8/10 LOCATION: Left lower leg and foot FINDINGS: 2 views of the left foot demonstrate the patient's hardware from the external fixator. I see no acute fracture of the foot. CONCLUSION: 1. Hardware in place. No definite fracture. Maurice Rascon MD on August 20, 2017 at 15:39 Board Certified Radiologist. This report was verified electronically.
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
[2017-08-20] MEDS ORDERED: MULTTAB67 PO (17:08)
[2017-08-20] MEDS ORDERED: BIOTCAP PO (17:08)
[2017-08-20] MEDS ORDERED: oxyCODONE/ACETAMINOPHEN 5 MG/325 MG TAB PO PRN (17:30)
[2017-08-20] MEDS ORDERED: oxyCODONE/ACETAMINOPHEN 10 MG/325 MG TAB PO PRN (17:30)
[2017-08-20] MEDS ORDERED: Vancomycin Consult Pharmacy 1 EA OTHER SCH (17:30)
[2017-08-20] MEDS ORDERED: LACTULOSE SYRUP 20 GM/30 ML CUP PO PRN (17:30)
[2017-08-20] MEDS ORDERED: BISACODYL 10 MG SUPP RECTAL PRN (17:30)
[2017-08-20] MEDS ORDERED: cloNIDine HCL 0.1 MG TAB PO PRN (17:30)
[2017-08-20] MEDS ORDERED: MAGNESIUM HYDROXIDE SUSP 30 ML CUP PO PRN (17:30)
[2017-08-20] MEDS ORDERED: SENNOSIDES 8.6 MG TAB PO PRN (17:30)
[2017-08-20] MEDS ORDERED: SODIUM CHLORIDE 0.9% FLUSH 10 ML FLUSH IV FLUSH PRN (17:30)
[2017-08-20] MEDS ORDERED: NALOXONE HCL 0.4 MG/ML AMP IV PUSH PRN (17:30)
[2017-08-20] MEDS ORDERED: ONDANSETRON HCL 4 MG/2 ML VIAL IVP PRN (17:30)
[2017-08-20] MEDS ORDERED: ACETAMINOPHEN 325 MG TAB PO PRN ×2 (17:30)
[2017-08-20] MEDS ORDERED: METOCLOPRAMIDE HCL 10 MG/2 ML VIAL IV PUSH PRN (17:30)
[2017-08-20] MEDS ORDERED: MORPHINE SULFATE 2 MG/ML INJ IV PUSH PRN ×3 (17:30)
[2017-08-20 17:31] VITALS: BP 136/72; PULSE 82; RESP 16; TEMP 98.7; O2SAT 99
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
[2017-08-20] MEDS: RIVAROXABAN 10 MG TAB PO SCH (19:43)
[2017-08-20] MEDS: MULTIVITAMIN TAB PO SCH (19:43)
[2017-08-20 19:44] VITALS: BP 148/86; PULSE 79; RESP 18; TEMP 98.5; O2SAT 98
[2017-08-20] MEDS: BACITRACIN TOP OINT 15 GM TUBE TOPICAL SCH (21:00)
[2017-08-20] MEDS: SODIUM CHLORIDE 0.9% FLUSH 10 ML FLUSH IV FLUSH SCH (21:36)
[2017-08-20] MEDS: DOCUSATE SODIUM 50 MG/SENNA 8.6 MG TAB PO SCH (21:36)
[2017-08-20] MEDS: PIPERACIL-TAZO 4.5 GM PREMIX 100 ML IV SCH (21:37)
[2017-08-20] MEDS: VANCOMYCIN INJ 1,250 MG in SODIUM CHLOR 0.9% 250 ML INJ 250 ML IV SCH (22:24)
[2017-08-20 23:17] VITALS: BP 136/69; PULSE 85; RESP 16; TEMP 98.1; O2SAT 98
[2017-08-21] MEDS: TEMAZEPAM 15 MG CAP PO PRN ×2 (02:12→22:48)
[2017-08-21 04:00] VITALS: BP 131/60; PULSE 74; RESP 16; TEMP 98.8; O2SAT 98
[2017-08-21 04:27] LABS: AUTOMATED NEUTROPHIL # 7.7 TH/MM3 (1.8-7.7); BASOPHIL # 0.1 TH/MM3 (0-0.2); BASOPHIL % 0.5 % (0.0-2.0); EOSINOPHIL # 0.2 TH/MM3 (0-0.4); EOSINOPHIL % 1.9 % (0.0-4.0); HEMATOCRIT 34.5 % (39.0-51.0); HEMOGLOBIN 11.8 GM/DL (13.0-17.0); LYMPH % 15.3 % (9.0-44.0); LYMPHOCYTE # 1.7 TH/MM3 (1.0-4.8); MEAN CELL VOLUME 91.6 FL (80.0-100.0); MEAN CORPUSCULAR HEMOGLOBIN 31.4 PG (27.0-34.0); MEAN CORPUSCULAR HGB CONC 34.3 % (32.0-36.0); MEAN PLATELET VOLUME 7.2 FL (7.0-11.0); MONO % 11.9 % (0.0-8.0); MONOCYTE # 1.3 TH/MM3 (0-0.9); NEUT % 70.4 % (16.0-70.0); PLATELET COUNT 416 TH/MM3 (150-450); RED BLOOD COUNT 3.77 MIL/MM3 (4.50-5.90); WHITE BLOOD COUNT 10.9 TH/MM3 (4.0-11.0)
[2017-08-21 04:55] LABS: ALBUMIN 2.8 GM/DL (3.4-5.0); ALT (GPT) 20 U/L (12-78); AST (GOT) 9 U/L (15-37); BICARBONATE 27.2 MEQ/L (21.0-32.0); BLOOD UREA NITROGEN 17 MG/DL (7-18); CALCIUM 8.7 MG/DL (8.5-10.1); CHLORIDE 106 MEQ/L (98-107); CREATININE 0.91 MG/DL (0.60-1.30); GLOMERULAR FILTRATION RATE 101 ML/MIN (>89); GLUCOSE,RANDOM 111 MG/DL (74-106); PHOSPHORUS 4.2 MG/DL (2.5-4.9); SODIUM (NA) 140 MEQ/L (136-145)
[2017-08-21 05:03] LABS: ALKALINE PHOSPHATASE 94 U/L (45-117); FREE T4 1.11 NG/DL (0.76-1.46); TOTAL BILIRUBIN ADULT 0.3 MG/DL (0.2-1.0); TOTAL PROTEIN 7.2 GM/DL (6.4-8.2)
[2017-08-21] MEDS: PIPERACIL-TAZO 4.5 GM PREMIX 100 ML IV SCH ×3 (05:07→18:20)
[2017-08-21] MEDS: VANCOMYCIN INJ 1,250 MG in SODIUM CHLOR 0.9% 250 ML INJ 250 ML IV SCH ×3 (06:15→22:47)
[2017-08-21 07:09] VITALS: BP 116/70; PULSE 87; RESP 18; TEMP 97.9; O2SAT 100
[2017-08-21] MEDS ORDERED: SENNOSIDES 8.6 MG TAB PO PRN (07:15)
[2017-08-21] MEDS ORDERED: diphenhydrAMINE HCL 25 MG CAP PO PRN (07:15)
[2017-08-21] MEDS ORDERED: BISACODYL 10 MG SUPP RECTAL PRN (07:15)
[2017-08-21] MEDS ORDERED: Post-op Orders (for Pharmacy) XX ONE (07:15)
[2017-08-21] MEDS ORDERED: SODIUM CHLORIDE 0.9% FLUSH 10 ML FLUSH IV FLUSH PRN (07:15)
[2017-08-21] MEDS ORDERED: MAGNESIUM HYDROXIDE SUSP 30 ML CUP PO PRN (07:15)
[2017-08-21] MEDS ORDERED: ACETAMINOPHEN/HYDROcodone 325 MG/5 MG TAB PO PRN (07:15)
[2017-08-21] MEDS ORDERED: LACTULOSE SYRUP 20 GM/30 ML CUP PO PRN (07:15)
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
[2017-08-21] MEDS: DOCUSATE SODIUM 50 MG/SENNA 8.6 MG TAB PO SCH ×2 (08:44→22:47)
[2017-08-21] MEDS: MULTIVITAMIN TAB PO SCH (08:44)
[2017-08-21] MEDS: ACETAMINOPHEN/HYDROcodone 325 MG/7.5 MG TAB PO PRN ×3 (08:45→18:48)
[2017-08-21] MEDS: LISINOPRIL 10 MG TAB PO SCH (08:45)
[2017-08-21] MEDS: SODIUM CHLORIDE 0.9% FLUSH 10 ML FLUSH IV FLUSH SCH ×2 (09:00→22:47)
[2017-08-21] MEDS ORDERED: DOCUSATE SODIUM 50 MG/SENNA 8.6 MG TAB PO SCH (09:00)
[2017-08-21] MEDS ORDERED: SODIUM CHLORIDE 0.9% FLUSH 10 ML FLUSH IV FLUSH SCH (09:00)
[2017-08-21 09:42] LABS: HEMOGLOBIN A1C 4.6 % (4.3-6.0)
[2017-08-21] MEDS: RIVAROXABAN 10 MG TAB PO SCH (09:56)
[2017-08-21 11:33] VITALS: BP 127/69; PULSE 74; RESP 16; TEMP 98; O2SAT 99
[2017-08-21] MEDS: BACITRACIN TOP OINT 15 GM TUBE TOPICAL SCH ×2 (13:14→22:47)
[2017-08-21] MEDS ORDERED: PHARMACY ORDERED LAB ONE (13:45)
[2017-08-21 15:38] VITALS: BP 127/69; PULSE 75; RESP 16; TEMP 97.8; O2SAT 98
[2017-08-21 20:32] VITALS: BP 129/72; PULSE 78; RESP 16; TEMP 97.4; O2SAT 98
[2017-08-21 23:20] VITALS: BP 127/66; PULSE 74; RESP 16; TEMP 97.9; O2SAT 98
[2017-08-22] MEDS: PIPERACIL-TAZO 4.5 GM PREMIX 100 ML IV SCH ×5 (00:09→22:14)
[2017-08-22] MEDS ORDERED: METOPROLOL TARTRATE 25 MG TAB PO PRN (00:30)
[2017-08-22] MEDS ORDERED: INSULIN HUMAN REGULAR 1,000 UNITS/10 ML VIAL SQ PRN (00:30)
[2017-08-22] MEDS ORDERED: CHLORHEXIDINE GLUCONATE 2 % 1 PACK (2 CLOTHS) TOPICAL PRN (00:30)
[2017-08-22] MEDS ORDERED: SODIUM CHLORID 0.9% 500 ML IV PRN (00:30)
[2017-08-22] MEDS ORDERED: POVIDONE IODINE 5% (ANTISEPSIS KIT) 4 APPLICATIONS EACH NARE PRN (00:30)
[2017-08-22] MEDS ORDERED: LACTATED RINGER'S 1000 ML IV PRN (00:30)
[2017-08-22 03:47] VITALS: BP 140/62; PULSE 66; RESP 16; TEMP 98; O2SAT 98
[2017-08-22] MEDS ORDERED: VANCOMYCIN HCL 1000 MG VIAL ONE (03:52)
[2017-08-22] MEDS ORDERED: ceFAZolin INJ 1,000 MG VIAL ONE (03:52)
[2017-08-22] MEDS ORDERED: GENTAMICIN SULFATE 80 MG/2 ML VIAL ONE (03:52)
[2017-08-22] MEDS: VANCOMYCIN INJ 1,250 MG in SODIUM CHLOR 0.9% 250 ML INJ 250 ML IV SCH (05:51)
[2017-08-22] MEDS: ACETAMINOPHEN/HYDROcodone 325 MG/7.5 MG TAB PO PRN (06:33)
[2017-08-22 07:29] VITALS: BP 133/77; PULSE 78; RESP 20; TEMP 98.2; O2SAT 97
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
[2017-08-22] MEDS ORDERED: DO NOT ADM ANY ANTICOAGULANT DRUGS PRN (09:46)
[2017-08-22] MEDS ORDERED: *MEPERIDINE 25 MG INJ VIAL PERIprocedural Use ONLY ONE (09:52)
[2017-08-22] MEDS ORDERED: KETOROLAC TROMETHAMINE 30 MG/ML (IVP) VIAL ONE (09:57)
--- NOTE | 2017-08-22 09:59 | RADRPT ---
EXAM DATE/TIME: 08/22/2017 09:24 [facility] COMPARISON: No previous studies available for comparison. INDICATIONS : Left tibia fracture. Left ankle wound vac applied and x fix replaced. MEDICAL HISTORY : None. SURGICAL HISTORY : None. ENCOUNTER: Initial ACUITY: 1 day PAIN SCORE: Non-responsive. LOCATION: Left ankle. FINDINGS: Acute fracture involving the left distal tibia is noted. Wound VAC is noted along the medial aspect o f the left ankle. CONCLUSION: Acute fracture involving the left distal tibia. Jaiden Madrigal MD on August 22, 2017 at 9:55 Board Certified Radiologist. This report was verified electronically.
[2017-08-22] MEDS ORDERED: *morphine SULFATE 4 MG/ML PERIprocedure ONLY ONE (10:10)
[2017-08-22] MEDS: LACTATED RINGER'S 1000 ML INJ 1,000 ML IV SCH ×2 (10:15→22:10)
[2017-08-22] MEDS ORDERED: Post-op Orders (for Pharmacy) XX ONE (11:00)
[2017-08-22] MEDS ORDERED: MIDAZOLAM HCL 2 MG/2 ML VIAL ONE (11:16)
[2017-08-22] MEDS ORDERED: ONDANSETRON HCL 4 MG/2 ML VIAL IV PUSH ONE (12:00)
[2017-08-22] MEDS ORDERED: LIDOCAINE HCL 1% PF 5 ML SYRINGE OTHER ONE (12:00)
[2017-08-22] MEDS ORDERED: PROPOFOL 200 MG/20 ML AMP IV ONE (12:00)
[2017-08-22 13:40] VITALS: BP 126/76; PULSE 65; RESP 20; TEMP 97.6; O2SAT 98
[2017-08-22] MEDS: KETOROLAC TROMETHAMINE 30 MG/ML (IVP) VIAL IVP SCH ×2 (14:00→22:08)
[2017-08-22] MEDS ORDERED: Gentamicin Consult Pharmacy 1 EA OTHER SCH (14:30)
[2017-08-22] MEDS: DOCUSATE SODIUM 50 MG/SENNA 8.6 MG TAB PO SCH ×2 (16:22→21:00)
[2017-08-22] MEDS: SODIUM CHLORIDE 0.9% FLUSH 10 ML FLUSH IV FLUSH SCH ×2 (16:22→21:00)
[2017-08-22] MEDS: BACITRACIN TOP OINT 15 GM TUBE TOPICAL SCH (16:23)
[2017-08-22] MEDS: MULTIVITAMIN TAB PO SCH (16:23)
[2017-08-22] MEDS: LISINOPRIL 10 MG TAB PO SCH (16:23)
[2017-08-22 16:25] VITALS: BP 130/64; PULSE 75; RESP 20; TEMP 98.3; O2SAT 97
[2017-08-22] MEDS: ACETAMINOPHEN/HYDROcodone 325 MG/10 MG TAB PO PRN ×2 (17:48→22:09)
[2017-08-22] MEDS: ceFAZolin 2 GM PREMIX 50 ML IV SCH (17:49)
[2017-08-22] MEDS: GENTAMICIN 80 MG PREMIX 100 ML IV SCH ×2 (18:00→19:33)
[2017-08-22 20:00] VITALS: BP 133/67; PULSE 73; RESP 18; TEMP 97.8; O2SAT 96
[2017-08-22] MEDS: TEMAZEPAM 15 MG CAP PO PRN (22:09)
[2017-08-23] VITALS (7 sets, daily range): BP systolic 118–143; BP diastolic 58–86; PULSE 64–81; RESP 17–18; TEMP 97.6–98.7; O2SAT 94–99
[2017-08-23] MEDS: ACETAMINOPHEN/HYDROcodone 325 MG/10 MG TAB PO PRN ×4 (00:57→23:10)
[2017-08-23] MEDS: BACITRACIN TOP OINT 15 GM TUBE TOPICAL SCH ×3 (00:57→21:28)
[2017-08-23] MEDS: ceFAZolin 2 GM PREMIX 50 ML IV SCH ×3 (00:57→16:48)
[2017-08-23] MEDS: GENTAMICIN 80 MG PREMIX 100 ML IV SCH ×3 (01:04→18:01)
[2017-08-23] MEDS: PIPERACIL-TAZO 4.5 GM PREMIX 100 ML IV SCH ×2 (05:05→12:13)
[2017-08-23] MEDS: KETOROLAC TROMETHAMINE 30 MG/ML (IVP) VIAL IVP SCH ×2 (05:05→15:54)
[2017-08-23] MEDS: SODIUM CHLORIDE 0.9% FLUSH 10 ML FLUSH IV FLUSH SCH ×2 (09:00→21:28)
[2017-08-23] MEDS: MULTIVITAMIN TAB PO SCH (09:03)
[2017-08-23] MEDS: LISINOPRIL 10 MG TAB PO SCH (09:03)
[2017-08-23] MEDS: DOCUSATE SODIUM 50 MG/SENNA 8.6 MG TAB PO SCH ×2 (09:03→21:00)
[2017-08-23] MEDS: ENOXAPARIN SODIUM 40 MG/0.4 ML SYRINGE SQ SCH (09:10)
[2017-08-23] MEDS: LACTATED RINGER'S 1000 ML INJ 1,000 ML IV SCH ×2 (11:15→23:45)
--- NOTE | 2017-08-23 12:43 | PD.ORT.PN ---
Subjective Subjective Remarks resting comfortably Objective Vitals Vital Signs Date Time Temp Pulse Resp B/P (MAP) Pulse Ox O2 Delivery O2 Flow Rate FiO2 08/23/17 12:09 98.5 74 18 124/60 (81) 99 08/23/17 08:19 98.0 69 18 119/70 (86) 99 08/23/17 05:06 97.6 64 17 123/65 (84) 99 08/23/17 01:00 97.9 81 17 143/86 (105) 94 08/22/17 20:00 97.8 73 18 133/67 (89) 96 08/22/17 16:25 98.3 75 20 130/64 (86) 97 08/22/17 13:40 97.6 65 20 126/76 (93) 98 I/O 08/22/17 08/22/17 08/22/17 08/23/17 08/23/17 08/23/17 07:00 15:00 23:00 07:00 15:00 23:00 Intake Total 750 ml 825 ml 100 ml 890 ml 150 ml Output Total 5 ml 750 ml Balance 750 ml 820 ml 100 ml 140 ml 150 ml Intake Oral 750 ml 350 ml 240 ml IV Total 175 ml 100 ml 650 ml 150 ml Other 300 ml Output Urine Total 0 ml 750 ml Estimated Blood Loss 5 ml # Voids 2 # Bowel Movements 1 Result Diagram: 08/21/17 0332 08/21/17 0332 Imaging Last 72 hours Impressions Ankle X-Ray 08/22/17 0000 Signed Impressions: Service Date/Time: Tuesday, August 22, 2017 09:24 - CONCLUSION: Acute fracture involving the left distal tibia. Jaiden Madrigal MD Objective Remarks Left lower extremity: clean dry dressings with wound vac intact. external fixation in place Assessment & Plan Assessment and Plan 1) Traumatic Open left distal Tibia and fibula Fxs s/p exfix I&D POD 1 -NWB -elevate -Pin care TID -maintain wound vac -consult infectious disease for positive for gram negative rods will continue to maintain x-fix but will need skin graft Robert Gardner Jr. Aug 23, 2017 12:43
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
[2017-08-23] MEDS: TEMAZEPAM 15 MG CAP PO PRN (23:10)
[2017-08-24] MEDS ORDERED: PHARMACY ORDERED LAB ONE (01:45)
[2017-08-24] MEDS: MORPHINE SULFATE 2 MG/ML INJ IV PUSH PRN ×3 (01:50→23:22)
[2017-08-24] MEDS: GENTAMICIN INJ 80 MG in SODIUM CHLORIDE 0.9% INJ 100 ML IV SCH ×2 (01:50→23:21)
[2017-08-24 02:00] VITALS: BP 114/60; PULSE 67; RESP 18; TEMP 97.8; O2SAT 96
[2017-08-24] MEDS: ceFAZolin 2 GM PREMIX 50 ML IV SCH ×2 (02:05→09:34)
[2017-08-24 02:47] LABS: CREATININE 0.91 MG/DL (0.60-1.30)
[2017-08-24 02:48] LABS: GENTAMICIN TROUGH 0.4 MCG/ML (0.0-2.0)
[2017-08-24 08:03] VITALS: BP 130/75; PULSE 63; RESP 18; TEMP 98.3; O2SAT 98
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
[2017-08-24] MEDS: DOCUSATE SODIUM 50 MG/SENNA 8.6 MG TAB PO SCH ×2 (09:00→21:00)
[2017-08-24] MEDS: SODIUM CHLORIDE 0.9% FLUSH 10 ML FLUSH IV FLUSH SCH ×2 (09:33→20:30)
[2017-08-24] MEDS: LISINOPRIL 10 MG TAB PO SCH (09:34)
[2017-08-24] MEDS: BACITRACIN TOP OINT 15 GM TUBE TOPICAL SCH ×2 (09:34→21:00)
[2017-08-24] MEDS: MULTIVITAMIN TAB PO SCH (09:34)
[2017-08-24] MEDS: ENOXAPARIN SODIUM 40 MG/0.4 ML SYRINGE SQ SCH (09:34)
[2017-08-24] MEDS: ACETAMINOPHEN/HYDROcodone 325 MG/10 MG TAB PO PRN (11:33)
[2017-08-24] MEDS ORDERED: SODIUM CHLORIDE 0.9% IV SCH (12:00)
[2017-08-24] MEDS ORDERED: GENTAMICIN IV SCH (12:00)
[2017-08-24] MEDS: LACTATED RINGER'S 1000 ML INJ 1,000 ML IV SCH (12:15)
[2017-08-24 12:36] VITALS: BP 124/73; PULSE 76; RESP 18; TEMP 98.3; O2SAT 98
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
[2017-08-24 16:07] VITALS: BP 135/72; PULSE 83; RESP 18; TEMP 97.2; O2SAT 97
[2017-08-24] MEDS: CEFEPIME INJ 2,000 MG in SODIUM CHLORIDE 0.9% INJ 100 ML IV SCH ×2 (17:21→23:26)
[2017-08-24 20:16] VITALS: BP 118/85; PULSE 84; RESP 20; TEMP 98.4; O2SAT 96
[2017-08-24] MEDS: TEMAZEPAM 15 MG CAP PO PRN (23:21)
[2017-08-25] VITALS: BP 112/58; PULSE 97; RESP 20; TEMP 98.2; O2SAT 97
[2017-08-25] MEDS: LACTATED RINGER'S 1000 ML INJ 1,000 ML IV SCH ×3 (00:45→23:45)
[2017-08-25 04:00] VITALS: BP 130/78; PULSE 65; RESP 18; TEMP 98.7; O2SAT 96
--- NOTE | 2017-08-25 06:56 | PD.ORT.PN ---
Subjective Subjective Remarks POD 3 s/p I&D with application of wound vac left leg doing well. pain controlled. no complaints. Objective Vitals Vital Signs Date Time Temp Pulse Resp B/P (MAP) Pulse Ox O2 Delivery O2 Flow Rate FiO2 08/25/17 04:00 98.7 65 18 130/78 (95) 96 08/25/17 00:00 98.2 97 20 112/58 (76) 97 08/24/17 20:16 98.4 84 20 118/85 (96) 96 08/24/17 16:07 97.2 83 18 135/72 (93) 97 08/24/17 12:36 98.3 76 18 124/73 (90) 98 08/24/17 08:03 98.3 63 18 130/75 (93) 98 I/O 08/24/17 08/24/17 08/24/17 08/25/17 08/25/17 08/25/17 07:00 15:00 23:00 07:00 15:00 23:00 Intake Total 150 ml 100 ml 200 ml Output Total 1200 ml 1200 ml Balance -1200 ml 150 ml 100 ml -1000 ml IV Total 150 ml 100 ml 200 ml Output Urine Total 1200 ml 1200 ml Result Diagram: 08/21/17 0332 08/24/17 0136 Imaging Last 72 hours Impressions Ankle X-Ray 08/22/17 0000 Signed Impressions: Service Date/Time: Tuesday, August 22, 2017 09:24 - CONCLUSION: Acute fracture involving the left distal tibia. Jaiden Madrigal MD Objective Remarks Left lower extremity: clean dry dressings with wound vac intact. external fixation in place Assessment & Plan Assessment and Plan 1) Traumatic Open left distal Tibia and fibula Fxs s/p exfix I&D POD 3 -NWB -elevate -Pin care TID -maintain wound vac -consult infectious disease for positive for gram negative rods -surgery today for I&D left leg with vac change -consents on chart Otto Bishop/First Jameson SEAMAN Aug 25, 2017 06:56
[2017-08-25 07:44] VITALS: BP 131/73; PULSE 74; RESP 19; TEMP 98.2; O2SAT 97
[2017-08-25] MEDS: CEFEPIME INJ 2,000 MG in SODIUM CHLORIDE 0.9% INJ 100 ML IV SCH ×2 (07:49→16:46)
[2017-08-25] MEDS: BACITRACIN TOP OINT 15 GM TUBE TOPICAL SCH ×2 (09:00→20:45)
[2017-08-25] MEDS: SODIUM CHLORIDE 0.9% FLUSH 10 ML FLUSH IV FLUSH SCH ×2 (09:00→20:45)
[2017-08-25] MEDS: LISINOPRIL 10 MG TAB PO SCH (09:00)
[2017-08-25] MEDS: DOCUSATE SODIUM 50 MG/SENNA 8.6 MG TAB PO SCH ×2 (09:00→20:44)
[2017-08-25] MEDS: MULTIVITAMIN TAB PO SCH (09:00)
[2017-08-25] MEDS ORDERED: GENTAMICIN SULFATE 80 MG/2 ML VIAL ONE ×2 (09:07→09:40)
[2017-08-25] MEDS ORDERED: Post-op Orders (for Pharmacy) XX ONE (10:15)
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
--- NOTE | 2017-08-25 10:34 | RADRPT ---
EXAM DATE/TIME: 08/25/2017 10:01 [place] COMPARISON: ANKLE LEFT LIMITED (AP&LAT), August 22, 2017, 9:24. INDICATIONS : Revision of ex fix of left ankle. MEDICAL HISTORY : Unobtainable. SURGICAL HISTORY : Unobtainable. ENCOUNTER: Subsequent ACUITY: 3 weeks PAIN SCORE: Non-responsive. LOCATION: Left ankle. CONCLUSION: Fluoroscopic images demonstrates fracture of the distal tibia and proximal fibula. Revision of mobile solutions architect al fixation devices. Arslan Vega MD on August 25, 2017 at 10:31 Board Certified Radiologist. This report was verified electronically.
[2017-08-25] MEDS ORDERED: DO NOT ADM ANY ANTICOAGULANT DRUGS PRN (10:40)
[2017-08-25] MEDS ORDERED: *MEPERIDINE 25 MG INJ VIAL PERIprocedural Use ONLY ONE (10:42)
[2017-08-25] MEDS ORDERED: MIDAZOLAM HCL 2 MG/2 ML VIAL ONE (10:43)
[2017-08-25] MEDS ORDERED: *morphine SULFATE 10 MG/ML PERIprocedure ONLY ONE (11:00)
[2017-08-25 11:41] VITALS: BP 124/72; PULSE 69; RESP 19; TEMP 97.7; O2SAT 99
[2017-08-25] MEDS ORDERED: DEXAMETHASONE SOD PHOS 4 MG/ML VIAL IV ONE (12:00)
[2017-08-25] MEDS ORDERED: ONDANSETRON HCL 4 MG/2 ML VIAL IV PUSH ONE (12:00)
[2017-08-25] MEDS ORDERED: LIDOCAINE HCL 1% PF 5 ML SYRINGE OTHER ONE (12:00)
[2017-08-25] MEDS ORDERED: PROPOFOL 200 MG/20 ML AMP IV ONE (12:00)
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
[2017-08-25 16:26] VITALS: BP 125/66; PULSE 82; RESP 20; TEMP 98.4; O2SAT 95
[2017-08-25] MEDS: ACETAMINOPHEN/HYDROcodone 325 MG/10 MG TAB PO PRN ×2 (16:55→20:44)
[2017-08-25] MEDS: clonazePAM 0.5 MG TAB PO SCH (20:41)
[2017-08-25] MEDS: traZODone HCL 100 MG TAB PO SCH (20:42)
[2017-08-25 21:00] VITALS: BP 131/58; PULSE 77; RESP 16; TEMP 98.3; O2SAT 96
[2017-08-26] VITALS: BP 125/60; PULSE 75; RESP 16; TEMP 98; O2SAT 97
[2017-08-26] MEDS: CEFEPIME INJ 2,000 MG in SODIUM CHLORIDE 0.9% INJ 100 ML IV SCH ×3 (00:26→17:20)
[2017-08-26] MEDS: ACETAMINOPHEN/HYDROcodone 325 MG/10 MG TAB PO PRN ×2 (03:54→17:32)
[2017-08-26 05:26] LABS: HEMATOCRIT 34.3 % (39.0-51.0); HEMOGLOBIN 11.6 GM/DL (13.0-17.0)
[2017-08-26 05:44] LABS: CREATININE 0.85 MG/DL (0.60-1.30)
[2017-08-26 05:45] VITALS: BP 129/60; PULSE 67; RESP 16; TEMP 98.2; O2SAT 98
--- NOTE | 2017-08-26 07:07 | PD.ORT.PN ---
Subjective Subjective Remarks POD 1 s/p I&D with application of wound vac left leg doing well. pain controlled. no complaints. Objective Vitals Vital Signs Date Time Temp Pulse Resp B/P (MAP) Pulse Ox O2 Delivery O2 Flow Rate FiO2 08/26/17 05:45 98.2 67 16 129/60 (83) 98 08/26/17 00:00 98.0 75 16 125/60 (81) 97 08/25/17 21:00 98.3 77 16 131/58 (82) 96 08/25/17 16:26 98.4 82 20 125/66 (85) 95 08/25/17 11:41 97.7 69 19 124/72 (89) 99 08/25/17 11:10 97.6 80 16 117/70 (86) 96 Room Air 08/25/17 11:05 15 08/25/17 11:00 81 16 115/73 (87) 95 Room Air 08/25/17 10:45 82 16 119/75 (90) 100 Nasal Cannula 2 08/25/17 10:40 97.8 87 20 110/70 (83) 97 Nasal Cannula 2 08/25/17 07:44 98.2 74 19 131/73 (92) 97 I/O 08/25/17 08/25/17 08/25/17 08/26/17 08/26/17 08/26/17 07:00 15:00 23:00 07:00 15:00 23:00 Intake Total 200 ml 600 ml 1000 ml 1000 ml Output Total 1200 ml 10 ml 800 ml 800 ml Balance -1000 ml 590 ml 200 ml 200 ml Intake Oral 1000 ml 1000 ml IV Total 200 ml Other 600 ml Output Urine Total 1200 ml 800 ml 800 ml Estimated Blood Loss 10 ml # Voids 0 # Bowel Movements 0 0 Result Diagram: 08/26/17 0458 08/26/17 0458 Imaging Last 72 hours Impressions Ankle X-Ray 08/22/17 0000 Signed Impressions: Service Date/Time: Tuesday, August 22, 2017 09:24 - CONCLUSION: Acute fracture involving the left distal tibia. Jaiden Madrigal MD Objective Remarks Left lower extremity: clean dry dressings with wound vac intact. external fixation in place Assessment & Plan Assessment and Plan 1) Traumatic Open left distal Tibia and fibula Fxs s/p exfix I&D POD 1 -NWB -elevate -Pin care TID -maintain wound vac -consult infectious disease for positive for gram negative rods - grew out pseudomonas -plan for repeat I&D with skin grafting on wednesday -npo after MN wednesday -consents on chart Otto Bishop/First Jameson SEAMAN Aug 26, 2017 07:07
[2017-08-26 07:46] VITALS: BP 116/58; PULSE 66; RESP 18; TEMP 98.2; O2SAT 96
[2017-08-26] MEDS: DOCUSATE SODIUM 50 MG/SENNA 8.6 MG TAB PO SCH ×2 (09:04→21:00)
[2017-08-26] MEDS: MULTIVITAMIN TAB PO SCH (09:04)
[2017-08-26] MEDS: LISINOPRIL 10 MG TAB PO SCH (09:05)
[2017-08-26] MEDS: clonazePAM 0.5 MG TAB PO SCH ×2 (09:05→22:15)
[2017-08-26] MEDS: SODIUM CHLORIDE 0.9% FLUSH 10 ML FLUSH IV FLUSH SCH ×2 (09:06→21:00)
[2017-08-26] MEDS: BACITRACIN TOP OINT 15 GM TUBE TOPICAL SCH ×2 (09:06→22:17)
[2017-08-26 11:57] VITALS: BP 124/60; PULSE 82; RESP 18; TEMP 98; O2SAT 98
[2017-08-26 15:48] VITALS: BP 131/59; PULSE 89; RESP 18; TEMP 98.3; O2SAT 96
[2017-08-26] MEDS: LACTATED RINGER'S 1000 ML INJ 1,000 ML IV SCH (17:19)
[2017-08-26 20:52] VITALS: BP 132/70; PULSE 84; RESP 18; TEMP 98.2; O2SAT 95
[2017-08-26] MEDS: traZODone HCL 100 MG TAB PO SCH (22:16)
[2017-08-27] VITALS: BP 124/60; PULSE 81; RESP 20; TEMP 99; O2SAT 96
[2017-08-27] MEDS: CEFEPIME INJ 2,000 MG in SODIUM CHLORIDE 0.9% INJ 100 ML IV SCH ×3 (00:01→15:00)
[2017-08-27 04:00] VITALS: BP 121/59; PULSE 70; RESP 20; TEMP 98.1; O2SAT 97
[2017-08-27] MEDS: ACETAMINOPHEN/HYDROcodone 325 MG/10 MG TAB PO PRN ×3 (05:10→21:15)
[2017-08-27] MEDS: clonazePAM 0.5 MG TAB PO SCH ×2 (08:28→21:15)
[2017-08-27] MEDS: DOCUSATE SODIUM 50 MG/SENNA 8.6 MG TAB PO SCH ×2 (08:28→21:00)
[2017-08-27] MEDS: MULTIVITAMIN TAB PO SCH (08:28)
[2017-08-27] MEDS: LISINOPRIL 10 MG TAB PO SCH (08:28)
[2017-08-27] MEDS: BACITRACIN TOP OINT 15 GM TUBE TOPICAL SCH ×2 (08:29→21:17)
[2017-08-27] MEDS: SODIUM CHLORIDE 0.9% FLUSH 10 ML FLUSH IV FLUSH SCH ×2 (08:30→21:16)
[2017-08-27] MEDS: LACTATED RINGER'S 1000 ML INJ 1,000 ML IV SCH ×2 (08:42→12:10)
[2017-08-27 08:45] VITALS: BP 116/56; PULSE 58; RESP 18; TEMP 97.4; O2SAT 97
[2017-08-27 12:36] VITALS: BP 118/64; PULSE 84; RESP 18; TEMP 97.4; O2SAT 97
[2017-08-27 16:35] VITALS: BP 137/63; PULSE 87; RESP 18; TEMP 98.3; O2SAT 98
[2017-08-27 20:00] VITALS: BP 118/63; PULSE 82; RESP 16; TEMP 98.6; O2SAT 96
[2017-08-27] MEDS: traZODone HCL 100 MG TAB PO SCH (21:15)
[2017-08-28] VITALS: BP 128/62; PULSE 78; RESP 16; TEMP 97.9; O2SAT 97
[2017-08-28] MEDS: CEFEPIME INJ 2,000 MG in SODIUM CHLORIDE 0.9% INJ 100 ML IV SCH ×4 (00:31→23:20)
[2017-08-28] MEDS: LACTATED RINGER'S 1000 ML INJ 1,000 ML IV SCH ×2 (00:40→06:32)
[2017-08-28 04:00] VITALS: BP 123/62; PULSE 78; RESP 16; TEMP 97.7; O2SAT 99
[2017-08-28 08:16] VITALS: BP 125/58; PULSE 71; RESP 20; TEMP 98.9; O2SAT 97
[2017-08-28 08:37] LABS: CREATININE 0.91 MG/DL (0.60-1.30)
[2017-08-28] MEDS: LISINOPRIL 10 MG TAB PO SCH (09:00)
[2017-08-28] MEDS: BACITRACIN TOP OINT 15 GM TUBE TOPICAL SCH ×2 (09:00→23:22)
[2017-08-28] MEDS: SODIUM CHLORIDE 0.9% FLUSH 10 ML FLUSH IV FLUSH SCH ×2 (09:00→23:26)
[2017-08-28] MEDS: DOCUSATE SODIUM 50 MG/SENNA 8.6 MG TAB PO SCH ×2 (09:00→21:00)
[2017-08-28] MEDS: MULTIVITAMIN TAB PO SCH (09:04)
[2017-08-28] MEDS: clonazePAM 0.5 MG TAB PO SCH ×2 (09:04→23:27)
[2017-08-28 11:44] VITALS: BP 117/61; PULSE 80; RESP 20; TEMP 98.3; O2SAT 80
--- NOTE | 2017-08-28 14:18 | PD.ORT.PN ---
Subjective Subjective Remarks Patient comfortable. Pain controlled. Mother at bedside. Denies fever, chills or sweats. Objective Vitals Vital Signs Date Time Temp Pulse Resp B/P (MAP) Pulse Ox O2 Delivery O2 Flow Rate FiO2 08/28/17 11:44 98.3 80 20 117/61 (79) 80 08/28/17 08:16 98.9 71 20 125/58 (80) 97 08/28/17 04:00 97.7 78 16 123/62 (82) 99 08/28/17 00:00 97.9 78 16 128/62 (84) 97 08/27/17 20:00 98.6 82 16 118/63 (81) 96 08/27/17 16:35 98.3 87 18 137/63 (87) 98 I/O 08/27/17 08/27/17 08/27/17 08/28/17 08/28/17 08/28/17 07:00 15:00 23:00 07:00 15:00 23:00 Intake Total 300 ml 480 ml 600 ml Output Total 1700 ml 400 ml 800 ml Balance -1400 ml -400 ml 480 ml -200 ml Intake Oral 300 ml 480 ml 600 ml Output Urine Total 1700 ml 400 ml 800 ml # Bowel Movements 0 Result Diagram: 08/26/17 0458 08/28/17 0800 Imaging Last 72 hours Impressions Ankle X-Ray 08/22/17 0000 Signed Impressions: Service Date/Time: Tuesday, August 22, 2017 09:24 - CONCLUSION: Acute fracture involving the left distal tibia. Jaiden Madrigal MD Objective Remarks Left lower extremity: clean dry dressings with wound vac intact. external fixation in place +sensation good movement of toes Assessment & Plan Assessment and Plan 1) Traumatic Open left distal Tibia and fibula Fxs s/p exfix I&D POD 3 -NWB -elevate -Pin care TID -maintain wound vac -consult infectious disease for positive for gram negative rods - grew out pseudomonas -plan for repeat I&D with skin grafting on wednesday -npo after MN wednesday -consents on chart Tristen Jane ABEL Aug 28, 2017 14:18
[2017-08-28 16:00] VITALS: BP 119/65; PULSE 69; RESP 18; TEMP 98.1; O2SAT 96
[2017-08-28] MEDS: ACETAMINOPHEN/HYDROcodone 325 MG/10 MG TAB PO PRN (16:38)
[2017-08-28 21:20] VITALS: BP 126/80; PULSE 82; RESP 17; TEMP 98.7; O2SAT 97
[2017-08-28] MEDS: MORPHINE SULFATE 2 MG/ML INJ IV PUSH PRN (23:22)
[2017-08-28] MEDS: traZODone HCL 100 MG TAB PO SCH (23:27)
[2017-08-29] MEDS: LACTATED RINGER'S 1000 ML INJ 1,000 ML IV SCH ×2 (01:40→14:10)
[2017-08-29] MEDS: ACETAMINOPHEN/HYDROcodone 325 MG/10 MG TAB PO PRN ×3 (05:16→18:16)
[2017-08-29] MEDS: CEFEPIME INJ 2,000 MG in SODIUM CHLORIDE 0.9% INJ 100 ML IV SCH ×2 (07:28→17:04)
[2017-08-29 08:00] VITALS: BP 122/63; PULSE 63; RESP 17; TEMP 98; O2SAT 98
[2017-08-29] MEDS: SODIUM CHLORIDE 0.9% FLUSH 10 ML FLUSH IV FLUSH SCH ×2 (09:00→22:49)
[2017-08-29] MEDS: BACITRACIN TOP OINT 15 GM TUBE TOPICAL SCH (09:00)
[2017-08-29] MEDS: DOCUSATE SODIUM 50 MG/SENNA 8.6 MG TAB PO SCH (09:00)
[2017-08-29] MEDS: LISINOPRIL 10 MG TAB PO SCH (09:05)
[2017-08-29] MEDS: MULTIVITAMIN TAB PO SCH (09:05)
[2017-08-29] MEDS: clonazePAM 0.5 MG TAB PO SCH (09:05)
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
[2017-08-29 12:00] VITALS: BP 120/67; PULSE 67; RESP 17; TEMP 97.3; O2SAT 96
[2017-08-29] MEDS: MORPHINE SULFATE 2 MG/ML INJ IV PUSH PRN ×2 (13:14→22:49)
[2017-08-29 16:00] VITALS: BP 139/79; PULSE 94; RESP 17; TEMP 98; O2SAT 96
[2017-08-29 20:00] VITALS: BP 130/64; PULSE 78; RESP 20; TEMP 98.2; O2SAT 97
[2017-08-30] VITALS: BP 129/75; PULSE 100; RESP 20; TEMP 97.4; O2SAT 97
[2017-08-30] MEDS: traZODone HCL 100 MG TAB PO SCH ×2 (00:04→21:07)
[2017-08-30] MEDS: CEFEPIME INJ 2,000 MG in SODIUM CHLORIDE 0.9% INJ 100 ML IV SCH ×3 (00:04→13:30)
[2017-08-30] MEDS: BACITRACIN TOP OINT 15 GM TUBE TOPICAL SCH ×3 (00:04→21:18)
[2017-08-30] MEDS: clonazePAM 0.5 MG TAB PO SCH ×3 (00:04→21:07)
[2017-08-30] MEDS: DOCUSATE SODIUM 50 MG/SENNA 8.6 MG TAB PO SCH ×3 (00:04→21:00)
[2017-08-30] MEDS ORDERED: POVIDONE IODINE 5% (ANTISEPSIS KIT) 4 APPLICATIONS EACH NARE PRN (04:30)
[2017-08-30] MEDS ORDERED: LACTATED RINGER'S 1000 ML IV PRN (04:30)
[2017-08-30] MEDS ORDERED: CHLORHEXIDINE GLUCONATE 2 % 1 PACK (2 CLOTHS) TOPICAL PRN (04:30)
[2017-08-30 06:05] VITALS: BP 119/66; PULSE 68; RESP 18; TEMP 97.3; O2SAT 97
[2017-08-30] MEDS ORDERED: VANCOMYCIN HCL 1000 MG VIAL ONE (06:54)
[2017-08-30] MEDS ORDERED: ceFAZolin 2 GM PREMIX 50 ML ONE (06:54)
[2017-08-30] MEDS ORDERED: BUPIVACAINE/EPINEPHRINE 0.25% PF 10 ML VIAL ONE (06:54)
[2017-08-30] MEDS ORDERED: MINERAL OIL 10 ML VIAL ONE (06:55)
--- NOTE | 2017-08-30 08:15 | PD.OP ---
cc: Mina Anderson MD Operative Report Date of Surgery: Aug 30, 2017 Preoperative Diagnosis: Open wound left calf and left ankle, left open tibia fracture Postoperative Diagnosis: Procedure: Split-thickness skin graft left leg 190 cm Anesthesia: Gen. Surgeon: Mina Anderson Fitting Room Checker(s): TOBY Dhaliwal PA-C The surgical procedure was assisted by my physician research assistant member. My P.A. presence was necessary throughout this case for the manipulation and positioning of the surgical extremity. My P.A. was assisting me throughout the duration of this procedure. The skill set of a physician research assistant member was medically necessary to complete this procedure. During the surgical case the director medical surgical was working at the back table and the physician research assistant member was directly assisting me. Operation and Findings: Patient brought to operating room and given IV sedation and general anesthesia. Timeout procedure was performed. IV antibiotics were administered. The left leg was prepped with alcohol followed by Hibiclens and draped in usual sterile fashion. Procedure began with irrigation and debridement of the open wound. Overall the wound was healthy with no visible necrotic tissue. All bone was covered with soft tissue. There was granulation tissue forming. Wound was now thoroughly irrigated with sterile saline. Next was turned to skin grafting. Using the Mela dermatome set at 0.016 skin graft was obtained from the thigh. Skin graft was now meshed at a ratio of 1- 1.5. The skin graft was now placed over the open wounds of the left calf and left ankle. Skin graft was stapled into position. The open wound was completely covered. Skin graft was now covered with Xeroform. A VAC dressing was cut to fit over the wound. VAC dressing was sealed appropriately. A compressive dressing was applied. VAC dressing was set on continuous. Patient was awakened and transferred to recovery in stable condition. Mina Anderson MD Aug 30, 2017 08:15
[2017-08-30] MEDS ORDERED: *MEPERIDINE 25 MG INJ VIAL PERIprocedural Use ONLY ONE (08:45)
[2017-08-30] MEDS ORDERED: MIDAZOLAM HCL 2 MG/2 ML VIAL ONE (08:49)
[2017-08-30] MEDS ORDERED: *morphine SULFATE 10 MG/ML PERIprocedure ONLY ONE (08:55)
[2017-08-30] MEDS: LISINOPRIL 10 MG TAB PO SCH (09:00)
[2017-08-30] MEDS: SODIUM CHLORIDE 0.9% FLUSH 10 ML FLUSH IV FLUSH SCH ×2 (09:00→21:08)
[2017-08-30] MEDS ORDERED: DO NOT ADM ANY ANTICOAGULANT DRUGS PRN (09:45)
[2017-08-30 12:00] VITALS: BP 117/61; PULSE 71; RESP 20; TEMP 98.8; O2SAT 95
[2017-08-30] MEDS ORDERED: LIDOCAINE HCL 1% PF 5 ML SYRINGE OTHER ONE (12:00)
[2017-08-30] MEDS ORDERED: ONDANSETRON HCL 4 MG/2 ML VIAL IV ONE (12:00)
[2017-08-30] MEDS ORDERED: PROPOFOL 200 MG/20 ML AMP IV ONE (12:00)
[2017-08-30] MEDS ORDERED: DEXAMETHASONE SOD PHOS 4 MG/ML VIAL IV ONE (12:00)
[2017-08-30] MEDS: MULTIVITAMIN TAB PO SCH (13:14)
[2017-08-30] MEDS: LACTATED RINGER'S 1000 ML INJ 1,000 ML IV SCH ×2 (13:27→15:10)
[2017-08-30] MEDS: ACETAMINOPHEN/HYDROcodone 325 MG/10 MG TAB PO PRN ×3 (13:28→21:07)
[2017-08-30] MEDS: MORPHINE SULFATE 2 MG/ML INJ IV PUSH PRN ×3 (15:27→22:00)
[2017-08-30 15:40] LABS: CREATININE 1.02 MG/DL (0.60-1.30)
[2017-08-30 16:00] VITALS: BP 133/67; PULSE 85; RESP 20; TEMP 98.7; O2SAT 95
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
[2017-08-30 20:30] VITALS: BP 126/59; PULSE 84; RESP 17; TEMP 98.7; O2SAT 95
[2017-08-31] MEDS: CEFEPIME INJ 2,000 MG in SODIUM CHLORIDE 0.9% INJ 100 ML IV SCH ×3 (00:09→15:37)
[2017-08-31] MEDS: ACETAMINOPHEN/HYDROcodone 325 MG/10 MG TAB PO PRN ×5 (00:09→21:47)
[2017-08-31 00:30] VITALS: BP 123/58; PULSE 72; RESP 17; TEMP 97.9; O2SAT 95
[2017-08-31] MEDS: MORPHINE SULFATE 2 MG/ML INJ IV PUSH PRN ×3 (01:28→08:21)
[2017-08-31] MEDS: LACTATED RINGER'S 1000 ML INJ 1,000 ML IV SCH ×2 (03:40→15:37)
[2017-08-31 04:45] VITALS: BP 118/56; PULSE 66; RESP 17; TEMP 98.3; O2SAT 97
[2017-08-31 08:14] VITALS: BP 112/57; PULSE 61; RESP 18; TEMP 98.6; O2SAT 96
[2017-08-31] MEDS: DOCUSATE SODIUM 50 MG/SENNA 8.6 MG TAB PO SCH ×2 (08:15→21:51)
[2017-08-31] MEDS: LISINOPRIL 10 MG TAB PO SCH (08:15)
[2017-08-31] MEDS: SODIUM CHLORIDE 0.9% FLUSH 10 ML FLUSH IV FLUSH SCH ×2 (08:15→21:47)
[2017-08-31] MEDS: clonazePAM 0.5 MG TAB PO SCH ×2 (08:15→21:46)
[2017-08-31] MEDS: MULTIVITAMIN TAB PO SCH (08:15)
[2017-08-31] MEDS: BACITRACIN TOP OINT 15 GM TUBE TOPICAL SCH (08:15)
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
[2017-08-31 12:17] VITALS: BP 114/61; PULSE 65; RESP 18; TEMP 98.9; O2SAT 98
[2017-08-31 15:50] VITALS: BP 130/62; PULSE 83; RESP 18; TEMP 97.8; O2SAT 96
[2017-08-31] MEDS ORDERED: CEFE2INJ9 IV (16:49)
[2017-08-31] MEDS ORDERED: EPIN1INJ21 SQ (16:49)
[2017-08-31] MEDS ORDERED: EPIN1INJ21 IV PUSH (16:49)
[2017-08-31] MEDS ORDERED: SOLU250I IV PUSH (16:49)
--- NOTE | 2017-08-31 16:57 | HHI.FF ---
Infusion Therapy Location of Infusion Therapy: Home [facility] Care IV Infusion Order Patient Information Appointment Date: Sep 03, 2017 Patient Weight 91.7 kg Diagnosis: Diagnosis Pseudomonas Hardware infection of Left lower extremity. Post trauma. Coded Allergies: No Known Drug Allergies (Verified Allergy, Unknown, 08/13/17) Administer Medication Cefepime 2 grams IV q 8 hours Start Treatment: Sep 03, 2017 Stop Treatment: Oct 03, 2017 Additional Information Venous access: PICC Line Additional Instructions [x] Peripheral flush and dressing changes per protocol [x] Implanted port and central line tender flakeboard: * Implanted port: 10 ml Normal Saline followed by 5 ml Heparin 100 units/ml Heparin flush after each use and monthly to maintain. [] May leave port accessed during therapy. [] May leave peripheral site accessed for duration of therapy. [x] If patient has SOB or respiratory distress, check oxygen saturation. If less than 90% or clinical signs of respiratory distress, administer oxygen at 2 L/min. via nasal cannula and notify physician. [x] Anaphylaxis/Reaction orders: * Stop infusion. * Keep IV line open with saline flush. * Notify physician. * Monitor vital signs every 15 minutes until symptoms resolve. * Check Oxygen saturation; Oxygen at 2 L/min. via nasal cannula if less than 90% or clinical signs of respiratory distress. * Administer diphenhydramine (Benadryl) 25 mg IV STAT, (unless patient has received as pre-med). May repeat once, if necessary. * Solu-Cortef 250 mg IVP over 30-60 seconds, use 100 mg vials for each dissolution. * Epinephrine (1mg/1 ml) 0.3 mg subcutaneously or IVP now with any signs of respiratory distress. * Check with physician for new additional pre-med orders if patient is re- challenged or re-treated. [x] May remove PICC line when treatment complete, after confirming with Physician. [x] If the patient is admitted to the hospital, the ED, or transferred via [facility] , complete transfer form including medication reconciliation order sheet. Laboratory Tests Weekly Labs: CBC w/diff, Creatinine, CRP, LFT's (Hepatic function test) Additional Information Please draw weekly labs, call with abnormals, change in clinical condition or problems to: [facility] or covering doctor. Phone: Fax: or or covering ID Physician Follow up appt: Patient to schedule follow up appt with [facility] within 10 days post discharge. Follow up with PCP Follow up with other MDs as planned. Counseling: Counseled about medication side effects Counseled about PICC line care and hand hygiene. Counseled about diarrhea and importance of early Cdiff testing. Yumiko Lerner MD Aug 31, 2017 16:57
[2017-08-31 20:00] VITALS: BP 133/79; PULSE 76; RESP 20; TEMP 98.3; O2SAT 97
[2017-08-31] MEDS: LACTOBACILLUS ACIDOPHILUS TAB PO SCH (21:46)
[2017-08-31] MEDS: traZODone HCL 100 MG TAB PO SCH (21:47)
[2017-09-01] VITALS: BP 109/57; PULSE 60; RESP 20; TEMP 98.2; O2SAT 97
[2017-09-01] MEDS: BACITRACIN TOP OINT 15 GM TUBE TOPICAL SCH ×3 (00:17→21:49)
[2017-09-01] MEDS: CEFEPIME INJ 2,000 MG in SODIUM CHLORIDE 0.9% INJ 100 ML IV SCH ×3 (00:17→16:06)
[2017-09-01] MEDS: ACETAMINOPHEN/HYDROcodone 325 MG/10 MG TAB PO PRN ×5 (01:07→21:49)
[2017-09-01 04:00] VITALS: BP 101/55; PULSE 102; RESP 20; TEMP 97.7; O2SAT 98
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
--- NOTE | 2017-09-01 06:49 | HHI.FF ---
Face to Face Verification Diagnosis: (1) Status post split thickness skin graft (2) Pseudomonas aeruginosa infection (3) Open fracture of left tibia and fibula Nursing Nursing: Pin care, Teach and assist BID pin care Dressing Changes: Daily dressing change, Aritseo wrap, 4x4s, Xeroform Additional Instructions PICC car head liner installer I have seen patient Bull Chopra on 09/01/17. My clinical findings support the need for the requested home health care services because: Limited ability to care for self I certify that my clinical findings support that this patient is homebound because: Post-op weakness Robert Gardner Jr. Sep 01, 2017 06:49
[2017-09-01 08:10] VITALS: BP 113/64; PULSE 72; RESP 18; TEMP 97.6; O2SAT 97
[2017-09-01] MEDS: MULTIVITAMIN TAB PO SCH (09:38)
[2017-09-01] MEDS: LACTOBACILLUS ACIDOPHILUS TAB PO SCH ×2 (09:38→21:48)
[2017-09-01] MEDS: clonazePAM 0.5 MG TAB PO SCH ×2 (09:38→21:49)
[2017-09-01] MEDS: LISINOPRIL 10 MG TAB PO SCH (09:39)
[2017-09-01] MEDS: SODIUM CHLORIDE 0.9% FLUSH 10 ML FLUSH IV FLUSH SCH ×2 (09:40→21:00)
[2017-09-01] MEDS: DOCUSATE SODIUM 50 MG/SENNA 8.6 MG TAB PO SCH ×2 (09:40→21:00)
[2017-09-01] MEDS: LACTATED RINGER'S 1000 ML INJ 1,000 ML IV SCH (10:07)
[2017-09-01 11:37] LABS: CREATININE 0.79 MG/DL (0.60-1.30)
[2017-09-01 12:00] VITALS: BP 127/77; PULSE 83; RESP 18; TEMP 98; O2SAT 97
[2017-09-01 16:00] VITALS: BP 112/66; PULSE 80; RESP 18; TEMP 98.6; O2SAT 97
[2017-09-01] MEDS: MORPHINE SULFATE 2 MG/ML INJ IV PUSH PRN (16:06)
[2017-09-01 21:00] VITALS: BP 114/66; PULSE 84; RESP 18; TEMP 98.1; O2SAT 95
[2017-09-01] MEDS: traZODone HCL 100 MG TAB PO SCH (21:48)
[2017-09-02] MEDS: CEFEPIME INJ 2,000 MG in SODIUM CHLORIDE 0.9% INJ 100 ML IV SCH ×4 (00:04→23:48)
[2017-09-02 01:09] VITALS: BP 129/61; PULSE 79; RESP 18; TEMP 98.1; O2SAT 98
[2017-09-02] MEDS: LACTATED RINGER'S 1000 ML INJ 1,000 ML IV SCH ×2 (03:29→14:50)
--- NOTE | 2017-09-02 06:41 | PD.ORT.PN ---
Subjective Subjective Remarks resting comfortably Objective Vitals Vital Signs Date Time Temp Pulse Resp B/P (MAP) Pulse Ox O2 Delivery O2 Flow Rate FiO2 09/02/17 01:09 98.1 79 18 129/61 (83) 98 09/01/17 21:00 98.1 84 18 114/66 (82) 95 09/01/17 16:00 98.6 80 18 112/66 (81) 97 09/01/17 12:00 98.0 83 18 127/77 (94) 97 09/01/17 08:10 97.6 72 18 113/64 (80) 97 I/O 09/01/17 09/01/17 09/01/17 09/02/17 09/02/17 09/02/17 07:00 15:00 23:00 07:00 15:00 23:00 Output Total 1000 ml Balance -1000 ml Output Urine Total 1000 ml # Voids 3 # Bowel Movements 0 1 Result Diagram: 09/01/17 1010 Imaging Last 72 hours Impressions Ankle X-Ray 08/22/17 0000 Signed Impressions: Service Date/Time: Tuesday, August 22, 2017 09:24 - CONCLUSION: Acute fracture involving the left distal tibia. Jaiden Madrigal MD Objective Remarks Left lower extremity: dressings C/D/I with wound vac intact. external fixation in place Clean dressings over left thigh from bone graft harvest site +sensation Plantar flexion of all toes weak dorsiflexion of toes Abrasion over base of first toe with good granulation tissue area mild swelling. Xeroform over abrasion Assessment & Plan Assessment and Plan 1) Traumatic Open left distal Tibia and fibula Fxs s/p exfix I&D and split- thickness skin graft POD 3 -NWB -elevate -Pin care TID -maintain wound vac at 125 mmHg continuous -Antibiotics managed by infectious disease - IV ABX for discharge -Will plan on discontinuing wound VAC on Wednesday. Need to have Xeroforms, 4x4s , ABD and acewraps bedside for dressing change Plan for discharge to home with IV antibiotics tomorrow with home health care Robert Gardner Jr. Sep 02, 2017 06:41
[2017-09-02 08:00] VITALS: BP 119/58; PULSE 66; RESP 18; TEMP 97.8; O2SAT 97
[2017-09-02] MEDS: LISINOPRIL 10 MG TAB PO SCH (08:17)
[2017-09-02] MEDS: clonazePAM 0.5 MG TAB PO SCH ×2 (08:17→21:50)
[2017-09-02] MEDS: LACTOBACILLUS ACIDOPHILUS TAB PO SCH ×2 (08:17→21:50)
[2017-09-02] MEDS: BACITRACIN TOP OINT 15 GM TUBE TOPICAL SCH ×2 (08:17→21:52)
[2017-09-02] MEDS: MULTIVITAMIN TAB PO SCH (08:17)
[2017-09-02] MEDS: SODIUM CHLORIDE 0.9% FLUSH 10 ML FLUSH IV FLUSH SCH ×2 (08:18→21:50)
[2017-09-02] MEDS: DOCUSATE SODIUM 50 MG/SENNA 8.6 MG TAB PO SCH ×2 (08:18→21:50)
[2017-09-02] MEDS: ACETAMINOPHEN/HYDROcodone 325 MG/10 MG TAB PO PRN ×3 (08:18→21:50)
[2017-09-02 12:00] VITALS: BP 124/58; PULSE 77; RESP 18; TEMP 97.9; O2SAT 99
--- NOTE | 2017-09-02 12:00 | RADRPT ---
EXAM DATE/TIME: 09/02/2017 11:30 [facility] COMPARISON: July 2017. INDICATIONS : Evaluate PICC line placement MEDICAL HISTORY : None. SURGICAL HISTORY : None. ENCOUNTER: Initial ACUITY: 1 month PAIN SCORE: 0/10 LOCATION: Bilateral chest FINDINGS: A single view of the chest demonstrates the lungs to be symmetrically aerated without evidence of mas s, infiltrate or effusion. The cardiomediastinal contours are unremarkable. Osseous structures are intact. CONCLUSION: Normal examination. Right-sided PICC line in good position with tip overlying SVC Joss Nance MD on September 02, 2017 at 11:58 Board Certified Radiologist. This report was verified electronically.
[2017-09-02] MEDS ORDERED: SODIUM CHLORIDE 0.9% FLUSH 10 ML FLUSH IV FLUSH PRN (15:00)
[2017-09-02 16:00] VITALS: BP 125/76; PULSE 93; RESP 18; TEMP 97.9; O2SAT 97
[2017-09-02 20:00] VITALS: BP 138/65; PULSE 82; RESP 18; TEMP 97.8; O2SAT 95
[2017-09-02] MEDS: traZODone HCL 100 MG TAB PO SCH (21:50)
[2017-09-03] VITALS: BP 134/71; PULSE 81; RESP 20; TEMP 97; O2SAT 94
[2017-09-03 06:32] VITALS: BP 126/64; PULSE 71; RESP 18; TEMP 97.8; O2SAT 97
[2017-09-03] MEDS: LACTATED RINGER'S 1000 ML INJ 1,000 ML IV SCH (06:40)
[2017-09-03] MEDS ORDERED: HYDR-3366 PO (06:44)
[2017-09-03] MEDS ORDERED: ASPI1TAB57 PO (06:44)
[2017-09-03] MEDS: MORPHINE SULFATE 2 MG/ML INJ IV PUSH PRN ×2 (06:59→13:19)
[2017-09-03 07:00] LABS: CREATININE 0.84 MG/DL (0.60-1.30)
[2017-09-03] MEDS: ACETAMINOPHEN/HYDROcodone 325 MG/10 MG TAB PO PRN ×4 (07:19→19:59)
[2017-09-03 08:00] VITALS: BP 135/79; PULSE 68; RESP 18; TEMP 97.6; O2SAT 97
[2017-09-03] MEDS ORDERED: SODIUM CHLORIDE 0.9% FLUSH 10 ML FLUSH IV FLUSH SCH (09:00)
[2017-09-03] MEDS: CEFEPIME INJ 2,000 MG in SODIUM CHLORIDE 0.9% INJ 100 ML IV SCH ×2 (09:06→16:03)
[2017-09-03] MEDS: LACTOBACILLUS ACIDOPHILUS TAB PO SCH (09:08)
[2017-09-03] MEDS: MULTIVITAMIN TAB PO SCH (09:09)
[2017-09-03] MEDS: LISINOPRIL 10 MG TAB PO SCH (09:09)
[2017-09-03] MEDS: clonazePAM 0.5 MG TAB PO SCH ×2 (09:09→20:00)
[2017-09-03] MEDS: DOCUSATE SODIUM 50 MG/SENNA 8.6 MG TAB PO SCH (09:09)
[2017-09-03] MEDS: BACITRACIN TOP OINT 15 GM TUBE TOPICAL SCH (09:10)
[2017-09-03] MEDS: SODIUM CHLORIDE 0.9% FLUSH 10 ML FLUSH IV FLUSH SCH (09:10)
--- NOTE | 2017-09-03 10:15 | HHI.PR ---
Addendum to Inpatient Note Addendum Reason: Additional Documentation Additional Information Orders for discharge home placed on 08/30/17. [facility] changed Cefepime dose to q12 despite organism being Pseudomonas aeruginosa. Further [facility]. Will sign off please call back if any change in clinical condition or questions. Yumiko Lerner MD Sep 03, 2017 10:15
[2017-09-03 12:00] VITALS: BP 129/78; PULSE 71; RESP 17; TEMP 97.5; O2SAT 97
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
[2017-09-03] MEDS: traZODone HCL 100 MG TAB PO SCH (20:00)
== END 2017-09-03 20:21 | disposition home health service (06) | DRG 857 ==
LOC: NEPC 13:58 → NEDA 17:16 → NEPFCDU 18:48 → OBSVTOIN 08-21 07:31 → N07B 08-22 07:49 → N05B 08-22 12:15
PROVIDERS: ADMIT Orthopaedic Surgery Orthopaedic Trauma; ATTEND Orthopaedic Surgery Orthopaedic Trauma
PROC: 0JBP0ZZ Excision of Left Lower Leg Subcutaneous Tissue and Fascia, Open Approach (ICD-10-PCS; 2017-08-22)
PROC: 0JBR0ZZ Excision of Left Foot Subcutaneous Tissue and Fascia, Open Approach (ICD-10-PCS; principal; 2017-08-22 08:31)
PROC: 0JDP0ZZ Extraction of Left Lower Leg Subcutaneous Tissue and Fascia, Open Approach (ICD-10-PCS; 2017-08-25)
PROC: 0HDNXZZ Extraction of Left Foot Skin, External Approach (ICD-10-PCS; 2017-08-25)
PROC: 0QSHXZZ Reposition Left Tibia, External Approach (ICD-10-PCS; 2017-08-25)
PROC: 0HRLX74 Replacement of Left Lower Leg Skin with Autologous Tissue Substitute, Partial Thickness, External Approach (ICD-10-PCS; 2017-08-30)
PROC: 0JDP0ZZ Extraction of Left Lower Leg Subcutaneous Tissue and Fascia, Open Approach (ICD-10-PCS; 2017-08-30)
PROC: 0HBJXZZ Excision of Left Upper Leg Skin, External Approach (ICD-10-PCS; 2017-08-30)
DX: T81.4XXA Infection following a procedure, initial encounter (principal); L03.116 Cellulitis of left lower limb; I10 Essential (primary) hypertension; V29.9XXD Motorcycle rider (driver) (passenger) injured in unspecified traffic accident, subsequent encounter; S82.202D Unspecified fracture of shaft of left tibia, subsequent encounter for closed fracture with routine healing; S83.20 Tear of unspecified meniscus, current injury; S82.402D Unspecified fracture of shaft of left fibula, subsequent encounter for closed fracture with routine healing; S82.832D Other fracture of upper and lower end of left fibula, subsequent encounter for closed fracture with routine healing; S92.002D Unspecified fracture of left calcaneus, subsequent encounter for fracture with routine healing; F43.23 Adjustment disorder with mixed anxiety and depressed mood; G47.00 Insomnia, unspecified
CPT/HCPCS: 71045; 73590; 73600; 73620; 76000; 80048; 80053; 80170; 80202; 82565; 82948; 83036; 83605; 83735; 84100; 84439; 84443; 85014; 85018; 85025; 85610; 85652; 85730; 86140; 87015; 87040; 87070; 87077; 87102; 87116; 87186; 87205; 87206; 94150; 96365; 96366; 96367; 96368; 96375; 96376; G0378; J0690; J0692; J1100; J1580; J1642; J1650; J1885; J2175; J2250; J2270; J2405; J2543; J3010; J3370; J7040; J7050; J7120

== ENCOUNTER → 2017-11-02 | Day surgery (SDC) | payer OTHER ==
[~2017-11-02] VITALS: Ht 188 cm; Wt 86.0 kg
[~2017-11-02] MED LIST changes: +*morphine SULFATE 10 MG/ML PERIprocedure ONLY ONE; +ACETAMINOPHEN 1000 MG/100 ML 100 ML IV ONE; +ACETAMINOPHEN/HYDROcodone 325 MG/10 MG TAB PO PRN; +ASPI1TAB57 PO; +BIOTCAP PO; +CHLORHEXIDINE GLUCONATE 2 % 1 PACK (2 CLOTHS) TOPICAL PRN; +CHLORHEXIDINE GLUCONATE 4% SOLN 120 ML BTL TOPICAL SCH; -CRUTMIS25; +DO NOT ADM ANY ANTICOAGULANT DRUGS PRN; +HYDR-3288 PO; +KETAMINE HCL 10 MG/5 ML SYRINGE IV PUSH ONE; +LACTATED RINGER'S 1000 ML IV PRN; +LACTCAP8 PO; +LIDOCAINE HCL 1% PF 5 ML SYRINGE OTHER ONE; -MAGN30S PO; +METOPROLOL TARTRATE 25 MG TAB PO PRN; +MIDAZOLAM HCL 2 MG/2 ML VIAL ONE; +MORPHINE SULFATE 4 MG/ML INJ IV PUSH PRN; +MULTTAB67 PO; +ONDANSETRON HCL 4 MG/2 ML VIAL IV ONE; +ONDANSETRON HCL 4 MG/2 ML VIAL IV PUSH PRN; -PERI PO; +POVIDONE IODINE 5% (ANTISEPSIS KIT) 4 APPLICATIONS EACH NARE PRN; +PROPOFOL 200 MG/20 ML AMP IV ONE; +PROPOFOL 500 MG/50 ML INJ 0 ML ONE; -QC B500O TOP; +SODIUM CHLORID 0.9% 500 ML IV PRN; +SODIUM CHLORIDE 0.9% FLUSH 10 ML FLUSH IV FLUSH PRN; +SODIUM CHLORIDE 0.9% FLUSH 10 ML FLUSH IV FLUSH SCH; +VANCOMYCIN 1 GM/200 ML PREMIX ON-CALL IV SCH; -WALKER WHEELS/F1 MIS; -XARE10TA PO; +ceFAZolin 2 GM PREMIX 50 ML IV SCH; +ceFAZolin INJ 1,000 MG VIAL ONE
--- NOTE | 2017-11-02 09:12 | PD.OP ---
cc: Mina Anderson MD Operative Report Date of Surgery: Nov 02, 2017 Preoperative Diagnosis: Healing left distal tibia fracture Postoperative Diagnosis: Procedure: Removal of external fixation left ankle, manipulation under anesthesia left ankle Anesthesia: Gen. Surgeon: Mina Anderson Tip Scourer(s): TOBY Copeland PA-C Operation and Findings: Bull is well-known to me from previous open left distal tibia fracture. Because of his open wounds he was treated with external fixation. Informed consent was obtained and operative site was marked. He is brought to operating room. Timeout procedure was performed. He was given IV sedation and MAC. He received IV antibiotics. Procedure began with removal of external fixation. Clamps were loosened. Clamps and bars were now removed. The pins were now removed. Pin sites were cleaned with Hibiclens. Attention was turned towards manipulation of the ankle. The ankle was gently manipulated. Initially there was minimal motion. After gentle manipulation I was able to achieve approximately 8 of dorsiflexion and approximately 25 of plantarflexion. The fracture was visualized under fluoroscopy. The fracture. To be healing. There is no visible motion under fluoroscopy at the fracture site with manipulation. Sterile dressings were applied. Patient was awakened and transferred to recovery room in stable condition. Mina Anderson MD Nov 02, 2017 09:11
--- NOTE | 2017-11-02 09:46 | RADRPT ---
EXAM DATE/TIME: 11/02/2017 09:01 [place] COMPARISON: ANKLE LEFT COMPLETE ([id number]), July 31, 2017, 16:54. INDICATIONS : External fixator removal left ankle. Post manipulation. MEDICAL HISTORY : None. SURGICAL HISTORY : External fixator placement left ankle. ENCOUNTER: Subsequent ACUITY: 1 day PAIN SCORE: Non-responsive. LOCATION: Left ankle. FINDINGS: The external fixator has been removed. There is good alignment of the fracture involving the distal t ibia. The fracture line is still visible. There is good alignment at the mortise joint. There is no c hange in alignment compared to the prior exam. CONCLUSION: Status post removal of hardware. Good alignment of the bony structures at the fracture site without s ignificant change compared to the prior study. Jaya Pretty MD on November 02, 2017 at 9:42 Board Certified Radiologist. This report was verified electronically.
[2017-11-02 10:45] VITALS: BP 139/80; PULSE 62; RESP 16; TEMP 97.6; O2SAT 99
== END | disposition home or self-care (01) ==
LOC: HSDC 05:37
PROVIDERS: ATTEND Orthopaedic Surgery Orthopaedic Trauma
DX: S82.302D Unspecified fracture of lower end of left tibia, subsequent encounter for closed fracture with routine healing (principal); I10 Essential (primary) hypertension; V29.9XXD Motorcycle rider (driver) (passenger) injured in unspecified traffic accident, subsequent encounter
CPT/HCPCS: 01462; 20694; 73610; 76000; J0131; J0690; J2250; J2270; J2405; J3010; J3370; J7120; L2114

== ENCOUNTER 2018-03-25 05:14 | Inpatient (IN) ==
[2018-03-25] MEDS ORDERED: Chlorhexidine Gluconate 2% 1 Pack (2 Cloths) TOPICAL SCH (05:45)
[2018-03-25] MEDS ORDERED: Metoprolol Tartrate 25 MG Tablet PO SCH (05:45)
[2018-03-25] MEDS ORDERED: Sodium Chlor 0.9% Inj 500 ML IV.SIG SCH (06:00)
[2018-03-25] MEDS ORDERED: ceFAZolin 2 GM/NS 100 ML IV; Q8H IV.SIG SCH ×2 (06:00)
[2018-03-25] MEDS ORDERED: Chlorhexidine 4% Topical 120 APPLIC/120 ML Bottle TOPICAL ONE (06:00)
[2018-03-25] MEDS ORDERED: Famotidine PF Inj 20 MG/2 ML Vial ONE (06:25)
[2018-03-25] MEDS ORDERED: fentaNYL Citrate Inj 100 MCG/2 ML Ampul ONE (06:25)
[2018-03-25] MEDS ORDERED: Ketamine Inj 50 MG/5 ML Syringe IV.PUSH ONE (06:43)
[2018-03-25] MEDS ORDERED: ceFAZolin 2 GM Premix Inj 0 GM/0 ML PIGGYBACK IV.SIG ONE (06:55)
[2018-03-25] MEDS ORDERED: Sodium Chlor 0.9% Inj 0 ML ONE (06:56)
[2018-03-25] MEDS ORDERED: Bupivacaine/Epinephrine Inj 0.25% 50 ML Vial ONE (07:59)
[2018-03-25] MEDS ORDERED: Promethazine 25 MG Supp RECTAL PRN (08:57)
[2018-03-25] MEDS ORDERED: Morphine Inj 4 MG/ML Vial IV.PUSH PRN (08:57)
[2018-03-25] MEDS ORDERED: Post-op Orders (for Pharmacy) OTHER STA (08:57)
--- NOTE | 2018-03-25 08:57 | P.OP ---
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 Because of the severity of his soft tissue injury he was treated with external fixation. He has had continued pain. 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 Informed consent was obtained and operative site was marked. The patient was seen and evaluated preoperatively. The patient's swelling had significantly improved and soft tissue appeared to be ready for surgery. Patient was brought to the OR and placed on the OR table, and given IV sedation and GETA. IV antibiotics were administered after deep cultures were obtained. Timeout procedure was performed. The procedure began with an 8-inch incision over the anterior-lateral aspect of the ankle and distal tibia. Incision was made along the anterior aspect of the fibula and syndesmosis. Care was taken to avoid injury to the superficial peroneal nerve. Subcutaneous tissue was dissected with Bovie. The distal tibia and distal fibula were exposed through this incision. At this point the distal tibia was evaluated. The nonunion site was visualized. There was visible motion at the fracture site. Attention was now turned towards the fibula. Soft tissue was protected. Using an oscillating saw an osteotomy was created to help correct the deformity of the fibula. Attention now was turned back towards the nonunion. A TPS bur was used to debride the fibrous tissue from the fracture site. Curettes and rongeurs were also used to debride the fracture site. Cultures of the tibia were obtained. A Synthes distal tibial plate was selected. The plate was provisionally held to bone with K-wires. The tibia was held in appropriate alignment. 3.5 cortical screws were used to compress plate to bone. 2.7 cortical screws were used to compress plate to bone distally. Multiple locking screws were now placed distally. Additional cortical screws were placed in the shaft. At this point attention was turned iliac crest bone grafting. A 3 cm incision was made over the iliac crest. Subcutaneous tissue dissected with Bovie. Osteotomes were used to create a window in the iliac crest. Bone graft was now harvested from the iliac crest using curettes. After completion of harvesting of the bone graft fascia was closed with #1 Vicryl. Subcutaneous tissues closed with 3-0 Vicryl. Skin was closed with abhilash. The incision area was infiltrated with quarter percent Marcaine with epinephrine. At this point a extra small Infuse graft was opened. The Infuse was mixed appropriately and allowed to set. This was mixed with iliac crest bone graft. This bone graft with Infuse was now packed in the fracture nonunion site. The defect was completely filled. Incisions was now thoroughly irrigated. Fascia was closed with #1 Vicryl. Subcutaneous tissue was closed with 3-0 Vicryl. Skin was closed with 3-0 Nylon and abhilash..
--- NOTE | 2018-03-25 09:24 | XR ---
EXAM DATE: 03/25/2018 8:56 AM EDT AGE/SEX: 27 years / Male INDICATIONS: Left ankle open reduction internal fixation. CLINICAL DATA: This is the patient's initial encounter. Patient reports that signs and symptoms have been present for 1 day and indicates a pain score of Nonresponsive. MEDICAL/SURGICAL HISTORY: None. . Left ankle ex-fix. COMPARISON: [facility], ANKLE LEFT COMPLETE ([id number]), 11/02/2017. . FINDINGS: Sideplate and osseous screws secure the distal tibial metadiaphyseal fracture. Fracture through the j unction of the middle and distal third of the fibular diaphysis with some bridging callus. Ankle mort ise is symmetric CONCLUSION: 1. Sideplate and osseous screws secure the distal tibial metadiaphyseal fracture. 2. Fracture through the junction of the middle and distal third of the fibular diaphysis with bridgi ng callus formation. Electronically signed by: Allen Tim MD 03/25/2018 9:23 AM EDT
[2018-03-25] MEDS ORDERED: *Meperidine Inj 25 MG/ML Vial PERIprocedural Use ONLY ONE (09:34)
[2018-03-25] MEDS ORDERED: *morphine SULFATE 4 MG/ML PERIprocedure ONLY ONE ×2 (09:58→11:16)
[2018-03-25] MEDS ORDERED: Ketorolac Inj 30 MG/ML (IVP) Vial IV.PUSH ONE (12:00)
[2018-03-25] MEDS ORDERED: Lidocaine PF 1% Inj 5 ML Syringe INFILTRATN ONE (12:00)
[2018-03-25] MEDS: Calcium/Vitamin D 250/125 MG Tablet PO SCH ×3 (13:45→21:49)
[2018-03-25] MEDS: Senna/Docusate Sodium 8.6/50 MG Tablet PO SCH ×2 (13:46→20:36)
[2018-03-25] MEDS: ceFAZolin Inj 2,000 MG in Sodium Chlor 0.9% Inj 80 ML IV.SIG SCH ×2 (18:07→23:52)
[2018-03-25] MEDS: Vancomycin Inj 1,000 MG in Sodium Chlor 0.9% Inj 250 ML IV.SIG SCH ×2 (20:35→20:38)
[2018-03-25] MEDS: Ketorolac Inj 30 MG/ML (IVP) Vial IV.PUSH SCH (20:36)
--- NOTE | 2018-03-26 07:25 | P.PNOP ---
Subjective Interval history: POd 1 s/p revision ORIF with ICBG left distal tibia Doing well. Pain controlled. States has not had any pain. States he feels ready to go home today Physical Exam Vital signs: Vital Signs 03/25/18 09:26 03/25/18 09:45 03/25/18 10:00 Temperature 97.3 F L Pulse Rate 92 H 70 63 Respiratory Rate 15 14 16 Blood Pressure 143/82 H 146/89 H 153/92 H Pulse Oximetry 100 100 100 03/25/18 10:15 03/25/18 10:30 03/25/18 11:00 Temperature Pulse Rate 61 59 L 58 L Respiratory Rate 15 15 17 Blood Pressure 156/68 H 147/85 H 148/78 H Pulse Oximetry 100 100 100 03/25/18 11:30 03/25/18 12:00 03/25/18 17:55 Temperature 97.7 F 96.8 F L Pulse Rate 66 79 78 Respiratory Rate 16 16 18 Blood Pressure 145/83 H 147/79 H 125/62 Pulse Oximetry 96 96 98 03/25/18 20:00 03/26/18 00:00 03/26/18 04:00 Temperature 98.3 F 97.8 F 98 F Pulse Rate 67 67 70 Respiratory Rate 20 20 17 Blood Pressure 129/71 138/64 134/60 Pulse Oximetry 97 95 97 Intake & Output 03/25/18 03/26/18 03/26/18 18:59 06:59 18:59 Intake Total 1500 / 1500 1930 / 1930 Output Total 1150 / 1150 Balance 350 / 350 1930 / 1930 Weight 94.5 kg Intake: IV 1000 / 1000 1450 / 1450 LR 1000 mL Inj 1,000 ML @ 100 1000 / 1000 mls/hr IV.CONT .Q10H [facility] Rx#: [id number] LR 1000 mL Inj 1,000 ML @ 30 1000 / 1000 mls/hr IV.SIG .Q24H [facility] Rx#: [id number] Vancomycin Inj 1,000 MG In NS 250 / 250 Inj 250 ML @ 250 mls/hr IV.SIG Q12H [facility] Rx#:[id number] Ancef Inj 2,000 MG In NS Inj 80 200 / 200 ML @ 200 mls/hr IV.SIG Q8H [facility] Rx#:[id number] Oral 480 / 480 Anesthesia Amount 500 / 500 Output: Urine 1000 / 1000 Estimated Blood Loss 150 / 150 Other: # Voids 3 Date of Last Bowel Movement 03/24/18 Narrative: LLE: splint has significant bloody drainage. intact. +splint. NVI Left hip: Dressing clean and dry. Intact. Results - Labs Microbiology 03/25/18 07:26 Wound - Leg Gram Stain - Final 03/25/18 07:26 Abscess - Leg Gram Stain - Final - Imaging Impressions Ankle X-Ray 03/25/18 00:00 CONCLUSION: 1. Sideplate and osseous screws secure the distal tibial metadiaphyseal fracture. 2. Fracture through the junction of the middle and distal third of the fibular diaphysis with bridging callus formation. Assessment and Plan - Assessment and Plan 1) Left distal Tibia nonunion with revision ORIF - POD 1 -NWB -maintain splint at all times -elevate -keep clean and dry -DC home today -daily dressing changes of left hip -orthotech to resplint today prior to leaving -f/u with [facility] or [facility] in 2 weeks
[2018-03-26] MEDS: ceFAZolin Inj 2,000 MG in Sodium Chlor 0.9% Inj 80 ML IV.SIG SCH (07:35)
[2018-03-26] MEDS: Ketorolac Inj 30 MG/ML (IVP) Vial IV.PUSH SCH (07:35)
--- NOTE | 2018-03-26 07:38 | P.DS ---
Date of admission: 03/25/18 12:24 Primary care physician: Physician 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 Anderson who underwent a traumatic left ankle injury 5 months ago. He was unable to proceed with internal fixation due to multiple wound issues and was definitively fixed with an external fixator. Subsequently, he developed a nonunion and failed to heal. It was made the decision to move forward with revision ORIF of the left ankle. 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 He tolerated it well was admitted to [facility]. By postop day 1, he was out of bed with therapy using crutches. He states his pain was well-controlled. He has significant bloody drainage at the splint. The splint was changed on postop day 1 prior to discharge. He will be discharged home today. He will remain strictly nonweightbearing on the left ankle and will elevated at all times. He will maintain his splint. He will have daily dressing changes in the left hip. He will be sent home with DVT prophylaxis and pain medication. He will follow-up in the office with Dr. Anderson or his PA in 2 weeks - Time Spent with Patient Total time spent providing and/or coordinating discharge services: Less than 30 minutes - Quality: VTE Deep Vein Thrombosis/Pulmonary Embolism Present on Admission: No Exam Vital signs: Vital Signs 03/25/18 09:26 03/25/18 09:45 03/25/18 10:00 Temperature 97.3 F L Pulse Rate 92 H 70 63 Respiratory Rate 15 14 16 Blood Pressure 143/82 H 146/89 H 153/92 H Pulse Oximetry 100 100 100 03/25/18 10:15 03/25/18 10:30 03/25/18 11:00 Temperature Pulse Rate 61 59 L 58 L Respiratory Rate 15 15 17 Blood Pressure 156/68 H 147/85 H 148/78 H Pulse Oximetry 100 100 100 03/25/18 11:30 03/25/18 12:00 03/25/18 17:55 Temperature 97.7 F 96.8 F L Pulse Rate 66 79 78 Respiratory Rate 16 16 18 Blood Pressure 145/83 H 147/79 H 125/62 Pulse Oximetry 96 96 98 03/25/18 20:00 03/26/18 00:00 03/26/18 04:00 Temperature 98.3 F 97.8 F 98 F Pulse Rate 67 67 70 Respiratory Rate 20 20 17 Blood Pressure 129/71 138/64 134/60 Pulse Oximetry 97 95 97 Intake & Output 03/25/18 03/26/18 03/26/18 18:59 06:59 18:59 Intake Total 1500 / 1500 1930 / 1930 Output Total 1150 / 1150 Balance 350 / 350 1930 / 1930 Weight 94.5 kg Intake: IV 1000 / 1000 1450 / 1450 LR 1000 mL Inj 1,000 ML @ 100 1000 / 1000 mls/hr IV.CONT .Q10H [facility] Rx#: [id number] LR 1000 mL Inj 1,000 ML @ 30 1000 / 1000 mls/hr IV.SIG .Q24H [facility] Rx#: [id number] Vancomycin Inj 1,000 MG In NS 250 / 250 Inj 250 ML @ 250 mls/hr IV.SIG Q12H [facility] Rx#:[id number] Ancef Inj 2,000 MG In NS Inj 80 200 / 200 ML @ 200 mls/hr IV.SIG Q8H [facility] Rx#:[id number] Oral 480 / 480 Anesthesia Amount 500 / 500 Output: Urine 1000 / 1000 Estimated Blood Loss 150 / 150 Other: # Voids 3 Date of Last Bowel Movement 03/24/18 Narrative: Left leg: Hip dressing clean and dry. Left leg splint has significant bloody drainage in the lateral aspect of the splint. He has full sensation distally Results Procedures completed during hospitalization: Revision ORIF of left distal tibia with iliac crest bone grafting - Impressions ITS Impressions Ankle X-Ray 03/25/18 00:00 CONCLUSION: 1. Sideplate and osseous screws secure the distal tibial metadiaphyseal fracture. 2. Fracture through the junction of the middle and distal third of the fibular diaphysis with bridging callus formation. Discharge Plan - Discharge Disposition Patient Disposition: Discharge Home - Discharge Condition Condition: Good - Discharge Order Discharge Orders: Discharge Order (Routine); Ordered 03/26/18 Ordered By: Otto Bishop - Physicians Team Primary Care Provider: [facility]ician 's Attending Provider: Mina Anderson - Rxs /Orders / Referrals /Forms Prescriptions: New hydrocodone-acetaminophen [[place]] 10-325 mg Tablet 1 tab PO Q4H Qty: 40 RF: 0 rivaroxaban [Xarelto] 10 mg Tablet 10 mg PO DAILY Qty: 14 RF: 0 Continue multivitamin Tablet 1 tab PO DAILY Referrals: [facility],Physician 's [Primary Care Provider] - See Instructions Mina Anderson MD [Physician] - See Instructions (2 weeks)
[2018-03-26] MEDS: Calcium/Vitamin D 250/125 MG Tablet PO SCH (08:29)
[2018-03-26] MEDS: Senna/Docusate Sodium 8.6/50 MG Tablet PO SCH (08:29)
[2018-03-26] MEDS: Vancomycin Inj 1,000 MG in Sodium Chlor 0.9% Inj 250 ML IV.SIG SCH ×2 (09:00→09:32)
== END 2018-03-26 12:46 | disposition home or self-care (01) ==
LOC: HSDC 05:14 → N06 12:24
PROVIDERS: ADMIT Orthopaedic Surgery Orthopaedic Trauma; ATTEND Orthopaedic Surgery Orthopaedic Trauma
PROC: ORIFTIB (2018-03-25 07:09)